=== PATIENT | male | born 1985 | race Two or more races ===

== ENCOUNTER 2020-11-12 01:03 | Emergency (ER) | payer OTHER ==
[~2020-11-12] VITALS: Ht 182.9 cm; Wt 141.5 kg
[2020-11-12 01:09] VITALS: BP 161/102
[2020-11-12] MEDS ORDERED: IBUPROFEN 800 MG TAB PO ONE (02:30)
== END 2020-11-12 03:41 | disposition home or self-care (01) ==
LOC: ER 01:08
DX: H66.91 Otitis media, unspecified, right ear (principal); I10 Essential (primary) hypertension; J45.909 Unspecified asthma, uncomplicated

== ENCOUNTER 2020-12-31 15:09 | Emergency (ER) | payer OTHER ==
[~2020-12-31] VITALS: Ht 182.9 cm; Wt 140.6 kg
[2020-12-31] MEDS ORDERED: SUMAtriptan SUCCINATE 6 MG/0.5 ML VL SC ONE (15:30)
[2020-12-31] MEDS ORDERED: HYDROcodone-ACET 10/325MG TAB PO ONE (15:30)
[2020-12-31 17:00] LABS: Basophils # (auto) 0 10 ^3/uL (0-0.2); Basophils % (auto) 0.5 % (0.0-2.0); Eosinophils # (auto) 0.1 10 ^3/uL (0-0.8); Eosinophils % (auto) 1.7 % (0.0-7.0); Hematocrit 42.1 % (41.0-53.0); Hemoglobin 14.2 g/dL (13.5-17.5); Lymphocytes # (auto) 1.6 10 ^3/uL (0.4-5.4); Mean Corpuscular Hgb Conc. 33.7 g/dL (32.0-36.0); Monocytes # (auto) 0.6 10 ^3/uL (0-1.3); Monocytes % (auto) 8.4 % (0.0-12.0); Neutrophils # (auto) 4.7 10 ^3/uL (1.6-8.6); Neutrophils % (auto) 66.4 % (37.0-80.0); Platelet Count (auto) 248 10^3/uL (140-450); Red Blood Cells 5.26 10^6/uL (4.5-5.90); White Blood Cell 7.1 10^3/uL (4.4-10.8)
[2020-12-31 17:22] LABS: Alanine Aminotransferase 27 U/L (16-61); Albumin 3.8 g/dL (3.4-5.0); Anion Gap 7 (5-15); Aspartate Aminotransferase 16 U/L (15-37); BUN/Creatinine Ratio 6.3; Blood Urea Nitrogen 8 mg/dL (7-18); Calcium 8.8 mg/dL (8.5-10.1); Carbon Dioxide 28 mmol/L (21-32); Chloride 105 mmol/L (98-107); GFR African American 83 mL/min; GFR Non-African American 69 mL/min; Glucose 82 mg/dL (74-106); Potassium 4.2 mmol/L (3.5-5.1); Sodium 140 mmol/L (136-145)
[2020-12-31 17:27] LABS: Alkaline Phosphatase 59 U/L (45-117); Bilirubin, Total 0.4 mg/dL (0.2-1.0); Total Protein 7.7 g/dL (6.4-8.2)
[2020-12-31 20:10] VITALS: BP 156/100
== END 2020-12-31 20:21 | disposition home or self-care (01) ==
LOC: EDBD 15:09 → ER 15:09
DX: I16.0 Hypertensive urgency (principal)
CPT/HCPCS: 36415; 70450; 80053; 84484; 85025; 93005; 96372; 99285; J3030

== ENCOUNTER 2023-03-04 21:02 | Emergency (ER) | payer SELFPAY ==
[~2023-03-04] VITALS: Ht 182.9 cm; Wt 145.5 kg
[2023-03-04 22:10] VITALS: BP 115/82; PULSE 89; RESP 18; TEMP 99.1; O2SAT 99
[2023-03-04] MEDS ORDERED: CEPH500C PO (22:13)
== END 2023-03-04 22:34 | disposition home or self-care (01) ==
LOC: ER 21:02
DX: L03.116 Cellulitis of left lower limb (principal); Z79.899 Other long term (current) drug therapy

== ENCOUNTER 2023-07-03 17:40 | Emergency (ER) | payer OTHER ==
[~2023-07-03] VITALS: Ht 182.9 cm; Wt 146.5 kg
[~2023-07-03 17:40] MED LIST: CEPH500C PO
[2023-07-03 17:45] VITALS: BP 151/93; PULSE 102; RESP 18; TEMP 98.6; O2SAT 96
[2023-07-03] MEDS ORDERED: IBUP1TAB5 PO (20:52)
[2023-07-03] MEDS ORDERED: IBUPROFEN 800 MG TAB PO ONE (21:00)
== END 2023-07-03 21:24 | disposition home or self-care (01) ==
LOC: ER 17:40
DX: S63.697A Other sprain of left little finger, initial encounter (principal); Z79.899 Other long term (current) drug therapy; X50.1XXA Overexertion from prolonged static or awkward postures, initial encounter; Y93.89 Activity, other specified; Y92.89 Other specified places as the place of occurrence of the external cause; Y99.8 Other external cause status
CPT/HCPCS: 29130; 73130

== ENCOUNTER 2024-12-21 22:51 | Emergency (ER) | payer MEDICAID, OTHER ==
[~2024-12-21] VITALS: Ht 182.9 cm; Wt 142.9 kg
[~2024-12-21 22:51] MED LIST changes: +IBUP1TAB5 PO
[2024-12-21 23:24] LABS: Basophils # (auto) 0 10 ^3/uL (0-0.2); Eosinophils # (auto) 0.1 10 ^3/uL (0-0.8); Eosinophils % (auto) 1.2 % (0.0-7.0); Lymphocytes # (auto) 1.9 10 ^3/uL (0.4-5.4); White Blood Cell 7.6 10^3/uL (4.4-10.8)
[2024-12-21 23:26] LABS: Basophils % (auto) 0.5 % (0.0-2.0); Hematocrit 45.5 % (41.0-53.0); Hemoglobin 15.3 g/dL (13.5-17.5); Lymphocytes % (auto) 24.7 % (10.0-50.0); Mean Corpuscular Hemoglobin 26.7 pg (28.0-32.0); Mean Corpuscular Hgb Conc. 33.7 g/dL (32.0-36.0); Mean Corpuscular Volume 79.2 fL (80.0-100.0); Monocytes # (auto) 0.7 10 ^3/uL (0-1.3); Monocytes % (auto) 8.6 % (0.0-12.0); Neutrophils # (auto) 4.9 10 ^3/uL (1.6-8.6); Platelet Count (auto) 274 10^3/uL (140-450); Red Blood Cells 5.74 10^6/uL (4.5-5.90)
[2024-12-21 23:30] LABS: Sodium 143 mmol/L (136-145)
[2024-12-21 23:31] LABS: Anion Gap 8 (5-15); Calcium 9.5 mg/dL (8.7-10.4); Carbon Dioxide 26 mmol/L (20-31)
[2024-12-21 23:33] LABS: Chloride 109 mmol/L (98-107); Potassium 3.5 mmol/L (3.5-5.1)
[2024-12-21 23:36] LABS: BUN/Creatinine Ratio 6.7 (10.0-20.0); Glucose 104 mg/dL (74-106)
--- NOTE | 2024-12-21 23:36 | DVH ---
CHEST RADIOGRAPH Indication: cp Technique: Single frontal view of the chest was obtained COMPARISON: None FINDINGS: Lines and Tubes: None Lungs: Clear Pleura: No effusion. No pneumothorax. Cardiomediastinal contours: Unremarkable Bones: Unremarkable IMPRESSION: 1. No acute disease.
[2024-12-21 23:39] LABS: Blood Urea Nitrogen 9 mg/dL (9-23)
--- NOTE | 2024-12-22 00:44 | ED.PDOC ---
History of Present Illness HPI Comments 39-year-old male who is brought in by ambulance for complaint of nonradiating mid epigastric abdominal pain and left arm tingling. Patient endorses onset of symptoms 20 minutes after eating a pizza, tonight. Only reports history of anxiety. Upon arrival to ED, patient endorses on feeling better and having no symptoms at this time. Per EMS report, no treatments were given and all vitals were stable and within normal limits. Chief Complaint: Chest Pain Time Seen by MD: 22:55 Primary Care Provider: UNKNOWN Reviewed Notes: Nurses Notes, Career Guidance Counselor Notes, Medications, Allergies Allergies: Coded Allergies: NO KNOWN ALLERGIES (Unverified , 11/12/20) Home Meds Active Scripts Ibuprofen Micronized (Ibuprofen) 600 Mg Tab, 1 TAB PO Q6HPRN PRN, #20 TAB As needed for pain Prov:MARYJANE KINNEY FUR STRETCHER 07/03/23 Cephalexin Monohydrate (Cephalexin) 500 Mg Cap, 1 CAP PO QID for 5 Days, #20 CAP 0 Refills Prov:BALTAZAR MARINO 03/04/23 Information Source: Patient, Emergency Med Personnel Mode of Arrival: EMS Severity: Moderate Timing: Minutes Duration: Minutes Prehospital treatment: 12 Lead EKG, Press Feeder [place] Past Medical History PAST MEDICAL HISTORY: Anxiety Surgical History: Denies all surgeries Family History Family History: Reviewed,noncontributory to illness Social History Smoker: Non-Smoker Alcohol: Occasionally Drugs: Denies Drug Use Lives In: Home All Other Systems: Reviewed and Negative (Comprehensive systems review obtained and negative except for what is stated in the HPI.) Physical Exam General Appearance: No Apparent Distress, Obese HEENT: Normal ENT Inspection, Pharynx Normal, TMs Normal Neck: Full Range of Motion, Non-Tender, Normal, Normal Inspection Respiratory: Chest Non-Tender, Lungs Clear, No Accessory Muscle Use, No Res piratory Distress, Normal Breath Sounds Cardiovascular: No Edema, No JVD, No Murmur, No Gallop, Normal Peripheral Pulses, Regular Rate/Rhythm Breast Exam: Deferred Gastrointestinal: No Organomegaly, Non Tender, No Pulsatile Mass, Normal Bowel Sounds, Soft Genitalia: Deferred Pelvic: Deferred Rectal: Deferred Extremities: No calf tenderness, Normal capillary refill, Normal inspection, Normal range of motion, Non-tender, No pedal edema Musculoskeletal : Apperance: Normal Neurologic: Alert, survey party chief II-XII nml as Tested, No Motor Deficits, Normal Affect, Normal Mood, No Sensory Deficits Cerebellar Function: Normal Reflexes: Normal Skin: Dry, Normal Color, Warm Lymphatic: No Adenopathy Was a procedure done? Was a procedure done?: No Differential Dx Considerations may include: Gastritis, gastroenteritis, PUD, GERD, viral syndrome, spoiled food, among others X-Ray, Labs, Meds, VS Vital Signs Date Time Temp Pulse Resp B/P (MAP) Pulse Ox O2 Delivery O2 Flow Rate FiO2 12/21/24 22:56 98.9 102 18 148/68 (94) 99 98.9 Lab Test 12/22/24 00:11 12/21/24 23:07 Range/Units Troponin I High Sensitivity Pending 8 </=54 ng/L White Blood Count 7.6 4.4-10.8 10^3/uL Red Blood Count 5.74 4.5-5.90 10^6/uL Hemoglobin 15.3 13.5-17.5 g/dL Hematocrit 45.5 41.0-53.0 % Mean Corpuscular Volume 79.2 L 80.0-100.0 fL Mean Corpuscular Hemoglobin 26.7 L 28.0-32.0 pg Mean Corpuscular Hemoglobin Concent 33.7 32.0-36.0 g/dL Red Cell Distribution Width 14.0 11.8-14.3 % Platelet Count 274 140-450 10^3/uL Mean Platelet Volume 7.8 6.9-10.8 fL Neutrophils (%) (Auto) 65.0 37.0-80.0 % Lymphocytes (%) (Auto) 24.7 10.0-50.0 % Monocytes (%) (Auto) 8.6 0.0-12.0 % Eosinophils (%) (Auto) 1.2 0.0-7.0 % Basophils (%) (Auto) 0.5 0.0-2.0 % Neutrophils # (Auto) 4.9 1.6-8.6 10 ^3/uL Lymphocytes # (Auto) 1.9 0.4-5.4 10 ^3/uL Monocytes # (Auto) 0.7 0-1.3 10 ^3/uL Eosinophils # (Auto) 0.1 0-0.8 10 ^3/uL Basophils # (Auto) 0 0-0.2 10 ^3/uL Nucleated Red Blood Cells 0.0 % Sodium Level 143 136-145 mmol/L Potassium Level 3.5 3.5-5.1 mmol/L Chloride Level 109 H 98-107 mmol/L Carbon Dioxide Level 26 20-31 mmol/L Anion Gap 8 5-15 Blood Urea Nitrogen 9 9-23 mg/dL Creatinine 1.34 H 0.700-1.30 mg/dL Glomerular Filtration Rate Calc 70 >90 mL/min BUN/Creatinine Ratio 6.7 L 10.0-20.0 Serum Glucose 104 74-106 mg/dL Calcium Level 9.5 8.7-10.4 mg/dL [place] [address] Ph: [phone] DIAGNOSTIC IMAGING Diagnostic Imaging Report : [id number] Signed PATIENT: DARCI BROWN ACCT: [id number] UNIT: [id number] : 1985 LOC: ER ROOM / BED: / AGE / SEX: 39 / M ADM STATUS: REG ER SERVICE 99 ORDERING PHYSICIAN: ORACIO CAGE PROCEDURE(s): CXRP - CHEST PORTABLE REASON: cp ORDER NUMBER(s): [id number], ACCESSION NUMBER(s): [id number] CHEST RADIOGRAPH Indication: cp Technique: Single frontal view of the chest was obtained COMPARISON: None FINDINGS: Lines and Tubes: None Lungs: Clear Pleura: No effusion. No pneumothorax. Cardiomediastinal contours: Unremarkable Bones: Unremarkable IMPRESSION: 1. No acute disease. ATED BY: PRANAV LUNDY MD DICTATED DATE/TIME: 12/21/242333 SIGNED BY: PRANAV LUNDY MD SIGNED DATE/TIME: 12/21/242333 CC: X-Ray, Labs, Meds, VS Comment Imaging: X-rays and CT scans were reviewed and interpreted by this provider, imaging shows no fractures and no pathological disease. Pending radiology review. Laboratory: Labs reviewed and interpreted by this provider. No significant abnormalities noted. Patient has prior medical visits reviewed. Med reconciliation performed Vital signs reviewed Time of 1ST Reevaluation: 23:25 Reevaluation 1ST: Unchanged Patient Education/Counseling: Diagnosis, Treatment, Need For Follow Up (Follow up with PCP in the next 2-4 days. Return to the emergency department if s ymptoms worsen over the next 24 hours.) Family Education/Counseling: No Family Present Additional Information Previous visits reviewed: July 03, 2023 for finger sprain The following tests were ordered, and results were reviewed by me: BMP, CBC, UA, troponin, chest x-ray Additional Information was gathered from interviewing the following independent historians: EMS I reviewed and agreed with the following test results read by other providers: Chest x-ray I discussed treatment and results with medical personnel and: patient Departure 1 Departure Time of Disposition: 01:05 Impression: Primary Impression: GERD (gastroesophageal reflux disease) Qualified Codes: K21.9 - Gastro-esophageal reflux disease without esophagi tis Additional Impression: Anxiety Disposition: 01 HOME / SELF CARE / HOMELESS Condition: Stable Discharged With: Self Critical Care Note Critical Care Time?: No Stability Stability form required: No Heart Score Heart Score: Heart Score Response (Comments) Value History N/A 0 EKG N/A 0 Age N/A 0 Risk Factors N/A 0 Troponin N/A 0 Total 0 I personally scribed for ORACIO CAGEP ([email or web address]) on 12/22/24 at 00:44. Electronically submitted by Ru Clement ([email or web address]). I personally scribed for ORACIO CAGE BUTTERMAKER HELPER ([email or web address]) on 12/22/24 at 00:45. Electronically submitted by Ru Clement ([email or web address]). ORACIO CAGE BUTTERMAKER HELPER Dec 22, 2024 00:44
[2024-12-22 02:40] VITALS: BP 149/101; PULSE 87; RESP 18; TEMP 98.3; O2SAT 94
--- NOTE | 2024-12-22 06:53 | ECG ---
[facility] Test Date: 2024-12-21 Test Time: 23:00:04 Pat Name: DARCI BROWN Department: ED Room: Gender: M Kitchen Designer: KATLYN : 1985 Requested By: ORACIO CAGE Order Number: [id number] Reading MD: Ramy Bland Measurements Intervals [place] Rate: 105 P: 38 [place]: 190 QRS: 30 QRSD: 87 T: 88 QT: 364 QTc: 482 Interpretive Statements Sinus tachycardia Low voltage, precordial leads Borderline T wave abnormalities Borderline prolonged QT interval Electronically Signed On 12-23-2024 9:27:17 PDT by Ramy Bland Please click the below link to view image of tracing.
== END 2024-12-22 02:46 | disposition home or self-care (01) ==
LOC: EDBD 22:51 → ER 22:59
DX: K21.9 Gastro-esophageal reflux disease without esophagitis (principal); F41.9 Anxiety disorder, unspecified; F10.90 Alcohol use, unspecified, uncomplicated; Z79.899 Other long term (current) drug therapy; Y90.9 Presence of alcohol in blood, level not specified
CPT/HCPCS: 36415; 71045; 80048; 84484; 85025; 93005

== ENCOUNTER 2025-01-15 18:19 | Inpatient (IN) | payer MEDICAID ==
[~2025-01-15] VITALS: Ht 182.9 cm; Wt 132.0 kg
--- NOTE | 2025-01-15 18:41 | ED.PDOC ---
History of Present Illness HPI Comments 40-year-old male is brought in by ambulance for chief complaint of left upper chest wall pain, palpitations, and bilateral and clamminess and cold sensation. This is on having symptoms, with no prior history of, intermittently, for the past 2 weeks. Recent episode is endorsed to have begun 20 minutes prior to arrival, unprovoked. Pain is nonradiating and 3/10 in severity. Only significant history of hypertension. Patient denies having any personal or family history of cardiac disease or tobacco use. Patient denies having any shortness of breath, nausea, vomiting, fever, or further associated symptoms. Chief Complaint: Chest Pain Time Seen by MD: 18:20 Primary Care Provider: UNKNOWN Reviewed Notes: Nurses Notes, Family Day Carer Notes, Medications, Allergies Allergies: Coded Allergies: NO KNOWN ALLERGIES (Unverified , 11/12/20) Home Meds Active Scripts Ibuprofen Micronized (Ibuprofen) 600 Mg Tab, 1 TAB PO Q6HPRN PRN, #20 TAB As needed for pain Prov:MARYJANE KINNEY PAINTER MAINTENANCE 07/03/23 Cephalexin Monohydrate (Cephalexin) 500 Mg Cap, 1 CAP PO QID for 5 Days, #20 CAP 0 Refills Prov:BALTAZAR MARINO 03/04/23 Information Source: Emergency Med Personnel Mode of Arrival: EMS Severity: Moderate Timing: Hours Duration: Since onset Prehospital treatment: 12 Lead EKG, Automatic Outsole Cutter Review of Systems: REVIEW OF SYSTEMS: No fever, no chills, HEENT: No neck pain, no blurred vision Cardiac: No chest pain. No palpitations. Lungs: No shortness of breath, GI: No abdominal pain, no vomiting Musculoskeletal: No joint pain , no back pain Skin: No rash, no wound Neuro: No headache, no dizziness, no syncope Vital Signs Vital Signs Date Time Temp Pulse Resp B/P (MAP) Pulse Ox O2 Delivery O2 Flow Rate FiO2 01/15/25 22:17 98.6 80 18 141/84 (103) 97 98.6 01/15/25 19:37 Room Air* 0 21 Physical Exam General: Awake, alert and oriented. No acute distress. Skin: Skin in warm, dry and intact without rashes or lesions. HEENT: The head is normocephalic and atraumatic. Conjunctivae are clear without exudates or hemorrhage. Sclera is non-icteric. Neck: Normal range of motion. No JVD. Cardiac: Regular rate Respiratory: No signs of respiratory distress. No Stridor. Extremities: Upper and lower extremities are atraumatic in appearance without deformity. Neurological: The patient is awake, alert and oriented to person, place, and time with normal speech. Speech is clear. There is no facial asymmetry. Psychiatric: Appropriate mood and affect. Good judgement and insight. Past Medical History PAST MEDICAL HISTORY: Anxiety, HTN Surgical History: Denies all surgeries Family History Family History: Reviewed,noncontributory to illness Social History Smoker: Non-Smoker Alcohol: Occasionally Drugs: Denies Drug Use Lives In: Home Was a procedure done? Was a procedure done?: No EKG EKG : Pulse Rate (adult): 96 [place]: Normal Cardiac Rhythm: NSR Block: None Hypertrophy: None ST: Normal Differential Dx Considerations may include: Differential diagnoses considered include acute ischemic coronary syndrome, aortic dissection, cardiac tamponade, mediastinitis, pulmonary embolus, pneumothorax, tension pneumothorax, esophageal rupture, coronary artery vasospasm, myocarditis, pericarditis, pneumonia, pulmonary edema, esophageal tear, pancreatitis, aortic stenosis, dilated cardiomyopathy, hypertrophic cardio myopathy, mitral valve prolapse, malignancy, pleuritis, pneumomediastinum, primary pulmonary hypertension, cholecystitis, esophageal spasm, esophagus, gastritis, GERD, peptic ulcer disease, costochondritis, fibromyalgia, rib fracture, herpes zoster, radicular syndromes, thoracic outlet syndrome, somatization. X-Ray, Labs, Meds, VS Vital Signs Date Time Temp Pulse Resp B/P (MAP) Pulse Ox O2 Delivery O2 Flow Rate FiO2 01/15/25 22:17 98.6 80 18 141/84 (103) 97 98.6 01/15/25 21:20 88 01/15/25 19:37 Room Air* 0 21 01/15/25 19:12 104 01/15/25 18:54 98.7 101 18 145/79 (101) 96 98.7 01/15/25 18:54 101 01/15/25 18:41 96 01/15/25 18:26 98.4 111 16 127/84 (98) 100 98.4 01/15/25 18:21 96 Lab Test 01/15/25 22:09 01/15/25 19:53 7/6/25 19:01 Range/Units Troponin I High Sensitivity 3 L 4 4 </=54 ng/L White Blood Count 7.1 4.4-10.8 10^3/uL Red Blood Count 5.80 4.5-5.90 10^6/uL Hemoglobin 15.6 13.5-17.5 g/dL Hematocrit 46.5 41.0-53.0 % Mean Corpuscular Volume 80.3 80.0-100.0 fL Mean Corpuscular Hemoglobin 26.9 L 28.0-32.0 pg Mean Corpuscular Hemoglobin Concent 33.5 32.0-36.0 g/dL Red Cell Distribution Width 14.3 11.8-14.3 % Platelet Count 268 140-450 10^3/uL Mean Platelet Volume 7.8 6.9-10.8 fL Neutrophils (%) (Auto) 64.9 37.0-80.0 % Lymphocytes (%) (Auto) 24.4 10.0-50.0 % Monocytes (%) (Auto) 8.1 0.0-12.0 % Eosinophils (%) (Auto) 2.1 0.0-7.0 % Basophils (%) (Auto) 0.5 0.0-2.0 % Neutrophils # (Auto) 4.6 1.6-8.6 10 ^3/uL Lymphocytes # (Auto) 1.7 0.4-5.4 10 ^3/uL Monocytes # (Auto) 0.6 0-1.3 10 ^3/uL Eosinophils # (Auto) 0.1 0-0.8 10 ^3/uL Basophils # (Auto) 0 0-0.2 10 ^3/uL Nucleated Red Blood Cells 0.1 % Sodium Level 145 136-145 mmol/L Potassium Level 3.9 3.5-5.1 mmol/L Chloride Level 109 H 98-107 mmol/L Carbon Dioxide Level 28 20-31 mmol/L Anion Gap 8 5-15 Blood Urea Nitrogen 9 9-23 mg/dL Creatinine 1.73 H 0.700-1.30 mg/dL Glomerular Filtration Rate Calc 51 >90 mL/min BUN/Creatinine Ratio 5.2 L 10.0-20.0 Serum Glucose 86 74-106 mg/dL Calcium Level 9.9 8.7-10.4 mg/dL Total Bilirubin 0.3 0.2-1.0 mg/dL Aspartate Amino Transferase (AST) 23 13-40 U/L Alanine Aminotransferase (ALT) 20 7-40 U/L Alkaline Phosphatase 65 46-116 U/L B-Type Natriuretic Peptide 8.28 0-100 pg/mL Total Protein 6.5 5.7-8.2 g/dL Albumin 4.4 3.2-4.8 g/dL Current Medications Medications (Trade) Dose Ordered Sig/Tigre Route Start Time Stop Time Status Last Admin Aspirin 324 mg ONCE ONCE PO 01/15/25 19:00 01/15/25 19:01 DC 01/15/25 19:37 Time of 1ST Reevaluation: 18:50 Reevaluation 1ST: Unchanged Patient Education/Counseling: Diagnosis, Treatment Family Education/Counseling: No Family Present SEPSIS Sepsis Screen Physician Orders Vital Signs Q1HR (01/15/25 18:50) Chest Xray 1 View (01/15/25 18:50) Vital Signs Date Time Temp Pulse Resp B/P (MAP) Pulse Ox O2 Delivery O2 Flow Rate FiO2 01/15/25 22:17 98.6 80 18 141/84 (103) 97 98.6 01/15/25 21:20 88 01/15/25 19:37 Room Air* 0 21 01/15/25 19:12 104 01/15/25 18:54 98.7 101 18 145/79 (101) 96 98.7 01/15/25 18:54 101 01/15/25 18:41 96 01/15/25 18:26 98.4 111 16 127/84 (98) 100 98.4 01/15/25 18:21 96 Laboratory Tests Test 01/15/25 19:01 White Blood Count 7.1 10^3/uL (4.4-10.8) Medications Medications Dose Ordered Sig/Tigre Route Start Time Stop Time Status Last Admin Dose Admin Aspirin 324 mg ONCE ONCE PO 01/15/25 19:00 01/15/25 19:01 DC 01/15/25 19:37 Departure 1 Departure Time of Disposition: 22:31 Impression: Primary Impression: Chest pain Additional Impression: FRANCES (acute kidney injury) Disposition: ADMITTED INPATIENT Condition: Stable Comments Patient admitted to hospitalist service for further treatment, evaluation and monitoring. Extensive evaluation was performed in attempt to identify or rule out: (See differential diagnosis section) The following tests were ordered, and results were reviewed by me and discussed with patient: (See diagnostic results section) The following test were independently interpreted by me: EKG I reviewed and agreed with the following test results read by other providers: Chest x-ray I reviewed the following notes from the pt's past medical encounters: December 21, 2024 encounter for GERD Additional information was gathered from interviewing the following independent historians: EMS personnel Discussion of management or test interpretation with external physician/other qualified health personal care assistant: N/A Addressed an acute or chronic illness that poses a threat to life or bodily function: Unstable angina, FRANCES Decision regarding hospitalization or escalation of hospital level of care: Risk and benefits of admission for further treatment of patient's condition was considered. Due to patient's current clinical condition, high risk of decline and poor outcome if discharged and need for further inpatient management and monitoring, patient will be admitted to the hospital. Drug therapy requiring intensive monitoring for toxicity: N/A Parenteral controlled substances: N/A Decision regarding elective major surgery with identified patient or procedure risk factors: N/A Decision regarding emergency major surgery: N/A Decision not to resuscitate or to de-escalate care because of poor prognosis: N/A Diagnosis or treatment significantly limited by social determinants of health: N/A Critical Care Note Critical Care Time?: No Stability Stability form required: No Heart Score Heart Score: Heart Score Response (Comments) Value History Slightly Suspicious 0 EKG Normal 0 Age <45 0 Risk Factors 1 or 2 risk factors 1 Troponin Normal limit 0 Total 1 I personally scribed for STACY GAMEZ MD ([email or web address]) on 01/15/25 at 18:41. Electronically submitted by Ru Clement [email or web address]). STACY GAMEZ MD Jan 15, 2025 18:41
--- NOTE | 2025-01-15 19:13 | ECG ---
[facility] Test Date: 2025-01-15 Test Time: 19:12:51 Pat Name: DARCI BROWN Department: ER Room: Gender: M Pipe Organ Installer: SEVERINO : 1985 Requested By: EMERGENCY EMERGENCY Order Number: [id number] Reading MD: Measurements Intervals [place] Rate: 104 P: 50 ID: [id number] QRS: 39 QRSD: 78 T: 66 QT: 324 QTc: 427 Interpretive Statements Sinus tachycardia Anteroseptal infarct, old Please click the below link to view image of tracing.
[2025-01-15 19:15] LABS: Hemoglobin 15.6 g/dL (13.5-17.5); Nucleated Red Blood Cells % 0.1 %
[2025-01-15 19:17] LABS: Hematocrit 46.5 % (41.0-53.0); Mean Corpuscular Hemoglobin 26.9 pg (28.0-32.0); Mean Corpuscular Volume 80.3 fL (80.0-100.0)
[2025-01-15 19:31] LABS: Alanine Aminotransferase 20 U/L (7-40); Albumin 4.4 g/dL (3.2-4.8); Alkaline Phosphatase 65 U/L (46-116); Anion Gap 8 (5-15); BUN/Creatinine Ratio 5.2 (10.0-20.0); Calcium 9.9 mg/dL (8.7-10.4); Carbon Dioxide 28 mmol/L (20-31); Glucose 86 mg/dL (74-106); Potassium 3.9 mmol/L (3.5-5.1); Sodium 145 mmol/L (136-145); Total Protein 6.5 g/dL (5.7-8.2)
[2025-01-15 19:36] LABS: Bilirubin, Total 0.3 mg/dL (0.2-1.0); Blood Urea Nitrogen 9 mg/dL (9-23); Chloride 109 mmol/L (98-107)
--- NOTE | 2025-01-15 19:47 | DVH ---
CHEST RADIOGRAPH Indication: cp Technique: Single frontal view of the chest was obtained Comparison: XY CHEST PORTABLE on DOS: 12/21/24 FINDINGS: Lines and Tubes: None Lungs: No focal consolidation. Pleura: No effusion. No pneumothorax. Cardiomediastinal contours: Unremarkable Bones: No acute osseous abnormality. IMPRESSION: 1. No acute cardiopulmonary disease.
[2025-01-15] MEDS: SODIUM CHLORIDE 0.9% 1,000 ML IV ONE (22:38)
[2025-01-15] MEDS ORDERED: ACETAMINOPHEN 325 MG TAB PO PRN (23:45)
[2025-01-15] MEDS: PANTOPRAZOLE 40 MG TAB PO ONE (23:45)
[2025-01-15] MEDS ORDERED: MORPHINE SULFATE INJ 2 MG/ml SYRG IV PRN (23:45)
[2025-01-15] MEDS ORDERED: NITROGLYCERIN 0.4 MG SL TAB SL PRN (23:45)
[2025-01-15] MEDS: ATORVASTATIN 20 MG TAB PO ONE (23:45)
--- NOTE | 2025-01-16 00:08 | DVHHP2 ---
History of Present Illness History of Present Illness Patient is 40 years old male with past medical history of hypertension on any medication came with a complaint of chest pain. As per patient he has been having intermittent chest pain that is going on for last 1 month. Patient reported chest pain started again today, gradual, 4/10, sharp, intermittent, aggravated with the anxiety, no relieving factor. Patient also endorsed some palpitation and shortness of breaths along with the chest pain. On further discussion patient reported during chest pain he was sweaty and his hands feel calm and sweaty. Patient denied any fever, cough, diarrhea, acute joint pain or redness or swelling, dysarthria change in vision. Initial lab workup revealed troponin I within normal limit, BNP within normal limit, serum creatinine 1.73, GFR 51. LDL-132, EKG revealed Q-wave on 1 aVL, V1,V2. CXR no acute cardiopulmonary disease. Past Medical History Hypertension-not taking any medication Past Surgical History None Family History None Past Social History Occasional alcoholic, denies smoking or drug abuse, lives with Review of Systems Review of Systems Allergy- NKDA Cardiovascular- deny acute cough or palpitation Respiratory denies cough or or wheezing Gastrointestinal- denies any rectal bleeding, nausea or vomiting Musculoskeletal-denies acute joint swelling or tenderness or redness Neurological- denies acute dysarthria, dysphagia, change in vision Psychiatry- denies depression or SI or HI Skin- denies acute rash or purpura Allergies: Coded Allergies: NO KNOWN ALLERGIES (Unverified , 11/12/20) Medications Current Medications Medications Dose Ordered Sig/Tigre Route Start Time Stop Time Status Last Admin Dose Admin Acetaminophen 650 mg Q6HP PRN PO 01/15/25 23:45 Nitroglycerin 0.4 mg Q5MINP PRN SL 01/15/25 23:45 Morphine Sulfate 2 mg Q30M PRN IV 01/15/25 23:45 Aspirin 81 mg DAILY PO 01/16/25 10:00 Atorvastatin Calcium 40 mg HS PO 01/16/25 22:00 Pantoprazole Sodium 40 mg DAILY@0600 PO 01/16/25 06:00 Exam Vital Signs Vital Signs Date Time Temp Pulse Resp B/P (MAP) Pulse Ox O2 Delivery O2 Flow Rate FiO2 01/15/25 22:17 98.6 80 18 141/84 (103) 97 98.6 7/6/25 19:37 Room Air* 0 21 Exam General examination- awake, alert, oriented HEENT- PEERLA, no acute nasal discharge Cardiovascular- S1-S2 audible, rate and rhythm regular, no murmur Respiratory- CTAB, no wheeze or rhonchi Gastrointestinal-nontender, bowel sound+. Nondistended Musculoskeletal-no acute joint swelling or tenderness or redness Lower extremity- no leg edema Neurological- cranial nerves intact, no acute dysarthria or dysphagia Psychiatry- denies depression or SI or HI Skin- no acute rash or purpura Labs/Xrays Labs Test 01/15/25 22:09 01/15/25 19:01 Range/Units Troponin I High Sensitivity 3 L </=54 ng/L White Blood Count 7.1 4.4-10.8 10^3/uL Red Blood Count 5.80 4.5-5.90 10^6/uL Hemoglobin 15.6 13.5-17.5 g/dL Hematocrit 46.5 41.0-53.0 % Mean Corpuscular Volume 80.3 80.0-100.0 fL Mean Corpuscular Hemoglobin 26.9 L 28.0-32.0 pg Mean Corpuscular Hemoglobin Concent 33.5 32.0-36.0 g/dL Red Cell Distribution Width 14.3 11.8-14.3 % Platelet Count 268 140-450 10^3/uL Mean Platelet Volume 7.8 6.9-10.8 fL Neutrophils (%) (Auto) 64.9 37.0-80.0 % Lymphocytes (%) (Auto) 24.4 10.0-50.0 % Monocytes (%) (Auto) 8.1 0.0-12.0 % Eosinophils (%) (Auto) 2.1 0.0-7.0 % Basophils (%) (Auto) 0.5 0.0-2.0 % Neutrophils # (Auto) 4.6 1.6-8.6 10 ^3/uL Lymphocytes # (Auto) 1.7 0.4-5.4 10 ^3/uL Monocytes # (Auto) 0.6 0-1.3 10 ^3/uL Eosinophils # (Auto) 0.1 0-0.8 10 ^3/uL Basophils # (Auto) 0 0-0.2 10 ^3/uL Nucleated Red Blood Cells 0.1 % Sodium Level 145 136-145 mmol/L Potassium Level 3.9 3.5-5.1 mmol/L Chloride Level 109 H 98-107 mmol/L Carbon Dioxide Level 28 20-31 mmol/L Anion Gap 8 5-15 Blood Urea Nitrogen 9 9-23 mg/dL Creatinine 1.73 H 0.700-1.30 mg/dL Glomerular Filtration Rate Calc 51 >90 mL/min BUN/Creatinine Ratio 5.2 L 10.0-20.0 Serum Glucose 86 74-106 mg/dL Calcium Level 9.9 8.7-10.4 mg/dL Total Bilirubin 0.3 0.2-1.0 mg/dL Aspartate Amino Transferase (AST) 23 13-40 U/L Alanine Aminotransferase (ALT) 20 7-40 U/L Alkaline Phosphatase 65 46-116 U/L B-Type Natriuretic Peptide 8.28 0-100 pg/mL Total Protein 6.5 5.7-8.2 g/dL Albumin 4.4 3.2-4.8 g/dL Assessment/Plan Assessment/Plan Assessment and plan -Acute chest pain, rule out acute coronary syndrome/ruled out acute pericarditis -EKG revealed Q-waves in 1 aVL, V1 V2, -troponin I within normal limit -continue aspirin 81 mg p.o. daily -continue atorvastatin 40 mg p.o. q.h.s. -ordered cardiology consult for further evaluation and care -ordered echo 2D for further evaluation and care # FRANCES likely due to VMN -serum creatinine 1.73 -continue IV normal saline as prescribed -monitor BMP # hypertension -monitor blood pressure #HLD -LDL- 132 -c/w Atorvastatin 40 mg qhs # obesity -patient was counseled about the effect of obesity on health, physical activity, weight reduction, healthy diet Goals of care, Code status full code ; discussed with >15 minutes PUD prophylaxis: Pantoprazole DVT prophylaxis: Patient ambulating Plan discussed with Dr. Contreras , nursing staff, Total time spent on patient evaluation, chart review, assessment and plan, discussion discussion >35 minutes Plan discussed with: Patient, Other (RN) My Orders Orders - MALOU GARCIA RESIDENT Procedure Category Date Status Time Admit ADMIT 01/15/25 Transmitted 23:40 Code Status CODE 01/15/25 Transmitted 23:40 Complete Blood Count LAB 01/16/25 Logged 04:00 Comprehensive LAB 01/16/25 Logged Metabolic Panel 04:00 Cardiac DIET 01/16/25 Transmitted Diet-2gna,Lofat,Lochol Breakfast Echo 2d Mode Cardiac US 01/15/25 Logged DOP 23:40 Acetaminophen Tablet PHA 01/15/25 In Process (Tylenol Tablet) 23:45 Nitroglycerin PHA 01/15/25 In Process Sublingual (Ntrostat 23:45 Morphine Sulfate PHA 01/15/25 In Process Injection 23:45 Notify Of Changes KENNETH 01/15/25 In Process From Base 23:40 [facility] 01/15/25 In Process 24 Hours 23:40 Aspirin Tablet PHA 01/16/25 In Process 10:00 Atorvastatin (Lipitor) PHA 01/16/25 In Process 22:00 Pantoprazole Tablet PHA 01/16/25 In Process (Protonix Tablet) 06:00 Date of Service: Jan 15, 2025 Billing Provider: YIFAN CONTRERAS MD Common Visit Codes: 49645-JARKAAT INP/OBS CARE (HIGH) Secondary Visit Codes: 10093-[id number] CARE PLAN 30 MINUTES MALOU GARCIA RESIDENT Jan 16, 2025 00:08
[2025-01-16] MEDS: SODIUM CHLORIDE 0.9% 1,000 ML IV ONE (02:17)
[2025-01-16] MEDS: SODIUM CHLORIDE 0.9% 1,000 ML IV SCH (03:46)
[2025-01-16 04:22] LABS: Hemoglobin 14.4 g/dL (13.5-17.5)
[2025-01-16 04:26] LABS: Hematocrit 42.5 % (41.0-53.0); Mean Corpuscular Hemoglobin 27.0 pg (28.0-32.0); Mean Corpuscular Volume 79.5 fL (80.0-100.0); Nucleated Red Blood Cells % 0.2 %
[2025-01-16 05:07] LABS: Alanine Aminotransferase 19 U/L (7-40); Alkaline Phosphatase 53 U/L (46-116); Anion Gap 8 (5-15); BUN/Creatinine Ratio 6.9 (10.0-20.0); Blood Urea Nitrogen 9 mg/dL (9-23); Calcium 9.1 mg/dL (8.7-10.4); Carbon Dioxide 24 mmol/L (20-31); Glucose 84 mg/dL (74-106); Potassium 3.9 mmol/L (3.5-5.1); Sodium 144 mmol/L (136-145); Total Protein 5.8 g/dL (5.7-8.2)
[2025-01-16 05:08] LABS: Albumin 3.9 g/dL (3.2-4.8); Bilirubin, Total 0.3 mg/dL (0.2-1.0)
[2025-01-16 05:17] LABS: Chloride 112 mmol/L (98-107)
[2025-01-16] MEDS: PANTOPRAZOLE 40 MG TAB PO SCH (05:49)
[2025-01-16 05:55] LABS: Triglycerides 82 mg/dL (< 150)
[2025-01-16 05:57] LABS: Cholesterol 172 mg/dL (< 200)
[2025-01-16 06:00] LABS: HDL Cholesterol 36 mg/dL (40-59)
[2025-01-16 08:00] VITALS: BP 150/97; PULSE 68; RESP 13; TEMP 98.1; O2SAT 96
[2025-01-16 08:47] VITALS: BP 150/97; PULSE 68; RESP 13; TEMP 98.1; O2SAT 96
[2025-01-16 11:01] LABS: Urine Protein, UAD Negative (Negative)
[2025-01-16 11:06] LABS: Amphetamine Screen, Urine Neg (NEGATIVE); Barbiturate Scree,Urine Neg (NEGATIVE); Benzodiazephine Screen, Urine Neg (NEGATIVE); Cannabinoid Screen, Urine Neg (NEGATIVE); Cocaine Screen, Urine Neg (NEGATIVE); Opiate Scree,Urine Neg (NEGATIVE); Phencyclidine Screen, Urine Neg (NEGATIVE)
--- NOTE | 2025-01-16 12:00 | ECG ---
[facility] Test Date: 2025-01-15 Test Time: 18:21:38 Pat Name: DARCI BROWN Department: ED Room: [address] [place] [address] Gender: M Milk Treater: [email or web address] : 1985 Requested By: ELDON FLANAGAN Order Number: [id number] Reading MD: Measurements Intervals [place] Rate: 96 P: 43 WI: 178 QRS: 28 QRSD: 91 T: 70 QT: 331 QTc: 419 Interpretive Statements Sinus rhythm Low voltage, precordial leads Anteroseptal infarct, old Please click the below link to view image of tracing.
[2025-01-16 13:30] VITALS: BP 138/88; PULSE 75; RESP 16; TEMP 98.4; O2SAT 97
--- NOTE | 2025-01-16 13:32 | DVHCONRES ---
Date Seen: Jan 16, 2025 Resident Creating Document: ELI CAMPA RESDIENT History of Present Illness This is a 40-year-old male with past medical history of hypertension and anxiety disorder came to the hospital because of chest pain. Per patient, yesterday patient was feeling anxious and suddenly developed chest pain, shortness of breath, palpitation, sweating, and body shaking. Per patient he had same symptoms in the past which was due to anxiety/panic attack. He denies fever, cough, or any recent sick contacts/chest trauma. Patient was prescribed lisinopril for blood pressure but the not taking. PMHx: Hypertension and anxiety disorder Home medication: Patient was prescribed lisinopril for blood pressure, but the patient does not take. Xanax for anxiety Allergic history: No known allergy Patient seen and examined at bedside. Patient is currently has no active symptoms including chest pain with shortness of breaths. Family History: Patient reports no known family medical history. Allergies: Coded Allergies: NO KNOWN ALLERGIES (Unverified , 11/12/20) Home Meds Active Scripts Ibuprofen Micronized (Ibuprofen) 600 Mg Tab, 1 TAB PO Q6HPRN PRN, #20 TAB As needed for pain Prov:MARYJANE KINNEY FREIGHT HANDLER 07/03/23 Cephalexin Monohydrate (Cephalexin) 500 Mg Cap, 1 CAP PO QID for 5 Days, #20 CAP 0 Refills Prov:BALTAZAR MARINO 03/04/23 Current Medications Current Medications Medications (Trade) Dose Ordered Sig/Tigre Route PRN Reason Start Time Stop Time Status Last Admin Acetaminophen (Tylenol Tablet) 650 mg Q6HP PRN PO PAIN SCALE 1-3 OR TEMP>100.4 01/15/25 23:45 Nitroglycerin (Ntrostat Sublingual) 0.4 mg Q5MINP PRN SL FOR CHEST PAIN 01/15/25 23:45 Morphine Sulfate 2 mg Q30M PRN IV FOR CHEST PAIN 01/15/25 23:45 Aspirin 81 mg DAILY PO 01/16/25 10:00 01/16/25 09:51 Atorvastatin Calcium (Lipitor) 40 mg HS PO 01/16/25 22:00 Pantoprazole Sodium (Protonix Tablet) 40 mg DAILY@0600 PO 01/16/25 06:00 Sodium Chloride 1,000 ml @ 125 mls/hr Q8H IV 01/16/25 00:45 01/16/25 08:45 Vital Signs Vital Signs Date Time Temp Pulse Resp B/P (MAP) Pulse Ox O2 Delivery O2 Flow Rate FiO2 01/16/25 08:47 68 13 96 Room Air* 0 21 01/16/25 08:47 98.1 150/97 (114) 98.1 Physical Exam General Appearance: Alert, Oriented X3, Cooperative, No acute distress HEENT: Atraumatic, PERRLA, EOMI, Mucous membrane moist/pink Respiratory: Clear to auscultation, Normal air movement Cardiovascular: Regular rate, Normal S1, Normal S2, No murmurs, no chest wall tenderness Abdominal: Normal bowel sounds, Soft, No tenderness, No hepatospenomegaly, No masses Extremities: No clubbing, No cyanosis, No edema, Normal pulses, No tenderness/swelling Skin: No rashes, No breakdown, No significant lesion Neuro: Normal gait, Normal speech, Strength at 5/5 X4 ext, Normal tone, Sensation intact, Cranial nerves 3-12 NL, Reflexes 2+ Psych/Mental Status: Mental status NL, Mood NL Labs/Diagnostic Data Labs Test 01/16/25 09:22 01/16/25 05:30 01/16/25 03:50 01/15/25 22:09 Range/Units Urine Color Light-yellow Yellow Urine Clarity Clear Clear Urine pH 7.5 5.0-9.0 Urine Specific [place] 1.014 1.001-1.035 Urine Protein Negative Negative Urine Ketones Negative Negative Urine Blood Negative Negative /uL Urine Nitrite Negative Negative Urine Bilirubin Negative Negative Urine Urobilinogen Normal Negative mg/dL Urine Leukocyte Esterase Negative Negative /uL Urine RBC <1 0 - 3 /hpf Urine Microscopic WBC 1 0-3 /HPF Urine Squamous Epithelial Cells Few <5 /hpf Urine Bacteria None seen None Seen /hpf Urine Glucose Normal Normal mg/dL Urine Opiates Screen Neg NEGATIVE Urine Fentanyl Screen Neg NEGATIVE Urine Barbiturates Screen Neg NEGATIVE Urine Phencyclidine Screen Neg NEGATIVE Urine Amphetamines Screen Neg NEGATIVE Urine Benzodiazepines Screen Neg NEGATIVE Urine Cocaine Screen Neg NEGATIVE Urine Cannabinoids Screen Neg NEGATIVE Triglycerides Level 82 < 150 mg/dL Cholesterol Level 172 < 200 mg/dL LDL Cholesterol 132 H < 100 mg/dL HDL Cholesterol 36 L 40-59 mg/dL White Blood Count 7.8 4.4-10.8 10^3/uL Red Blood Count 5.34 4.5-5.90 10^6/uL Hemoglobin 14.4 13.5-17.5 g/dL Hematocrit 42.5 41.0-53.0 % Mean Corpuscular Volume 79.5 L 80.0-100.0 fL Mean Corpuscular Hemoglobin 27.0 L 28.0-32.0 pg Mean Corpuscular Hemoglobin Concent 34.0 32.0-36.0 g/dL Red Cell Distribution Width 14.6 H 11.8-14.3 % Platelet Count 246 140-450 10^3/uL Mean Platelet Volume 8.0 6.9-10.8 fL Neutrophils (%) (Auto) 60.5 37.0-80.0 % Lymphocytes (%) (Auto) 30.7 10.0-50.0 % Monocytes (%) (Auto) 6.3 0.0-12.0 % Eosinophils (%) (Auto) 2.1 0.0-7.0 % Basophils (%) (Auto) 0.4 0.0-2.0 % Neutrophils # (Auto) 4.7 1.6-8.6 10 ^3/uL Lymphocytes # (Auto) 2.4 0.4-5.4 10 ^3/uL Monocytes # (Auto) 0.5 0-1.3 10 ^3/uL Eosinophils # (Auto) 0.2 0-0.8 10 ^3/uL Basophils # (Auto) 0 0-0.2 10 ^3/uL Nucleated Red Blood Cells 0.2 % Sodium Level 144 136-145 mmol/L Potassium Level 3.9 3.5-5.1 mmol/L Chloride Level 112 H 98-107 mmol/L Carbon Dioxide Level 24 20-31 mmol/L Anion Gap 8 5-15 Blood Urea Nitrogen 9 9-23 mg/dL Creatinine 1.30 0.700-1.30 mg/dL Glomerular Filtration Rate Calc 72 >90 mL/min BUN/Creatinine Ratio 6.9 L 10.0-20.0 Serum Glucose 84 74-106 mg/dL Hemoglobin A1c 5.2 <5.7 % A1C Calcium Level 9.1 8.7-10.4 mg/dL Total Bilirubin 0.3 0.2-1.0 mg/dL Aspartate Amino Transferase (AST) 25 13-40 U/L Alanine Aminotransferase (ALT) 19 7-40 U/L Alkaline Phosphatase 53 46-116 U/L Total Protein 5.8 5.7-8.2 g/dL Albumin 3.9 3.2-4.8 g/dL Vitamin B12 Level 455 211-911 pg/mL Vitamin D 25-Hydroxy 25.4 L 30.0-100 ng/mL Folic Acid 8.52 >5.38 ng/mL Thyroid Stimulating Hormone (TSH) 1.44 0.55-4.78 uIU/mL Plasma/Serum Blood Alcohol < 3.0 <10 mg/dL Troponin I High Sensitivity 3 L </=54 ng/L Test 01/15/25 19:01 Range/Units B-Type Natriuretic Peptide 8.28 0-100 pg/mL Assessment Chest pain, likely due to anxiety/panic attack History of hypertension Morbid obesity FRANCES, likely VMN * EKGs shows normal sinus rhythm with no significant ST or T-wave changes * Serial trop I and BNP is within normal limits * Chest x-ray shows no intrathoracic abnormalities Plan/recommendation * Continue lisinopril 20 mg daily * Check echocardiogram * In context of normal echocardiogram no further cardiology workup is required at the moment * We sign of the patient * History of plan per primary team Thank you for giving us the opportunity to take care of your patient. Please call back if you have any questions/concern. Plan/Recommendation pt seen with cv team morbidly obese, with panic attack negative cv workup cv cleared for dc home will sign off Plan discussed with: Patient, Other (RN) ELI CAMPA Jan 16, 2025 13:32 MIRA IRVING MD Jan 16, 2025 13:50
[2025-01-16] MEDS ORDERED: LISINOPRIL 20 MG TAB PO ONE (13:45)
--- NOTE | 2025-01-16 17:26 | DVHPNRES ---
Progress Note Objective vital signs Vital Sign Date Time Temp Pulse Resp B/P (MAP) Pulse Ox O2 Delivery O2 Flow Rate FiO2 01/16/25 13:30 98.4 75 16 138/88 (105) 97 98.4 01/16/25 08:47 Room Air* 0 21 medications Current Medications Medications Dose Ordered Sig/Tigre Route Start Time Stop Time Status Last Admin Dose Admin Acetaminophen 650 mg Q6HP PRN PO 01/15/25 23:45 Nitroglycerin 0.4 mg Q5MINP PRN SL 01/15/25 23:45 Morphine Sulfate 2 mg Q30M PRN IV 01/15/25 23:45 Aspirin 81 mg DAILY PO 01/16/25 10:00 01/16/25 09:51 81 MG Atorvastatin Calcium 40 mg HS PO 01/16/25 22:00 Pantoprazole Sodium 40 mg DAILY@0600 PO 01/16/25 06:00 Sodium Chloride 1,000 ml @ 125 mls/hr Q8H IV 01/16/25 00:45 01/16/25 08:45 125 MLS/HR Lisinopril 20 mg DAILY PO 01/17/25 10:00 laboratory and microbiology Laboratory Tests 01/16/25 03:50 Test 01/16/25 03:50 Range/Units Serum Glucose 84 74-106 mg/dL My Orders My Orders Orders - ELDON FLANAGAN RESIDENT Procedure Category Date Status Time Complete Blood Count LAB 01/17/25 Verified 04:00 Comprehensive LAB 01/17/25 Verified Metabolic Panel 04:00 Strict I & O KENNETH 01/16/25 Verified 17:24 ELDON FLANAGAN RESIDENT Jan 16, 2025 17:26
[2025-01-16] MEDS ORDERED: ATORVASTATIN 20 MG TAB PO SCH (22:00)
--- NOTE | 2025-01-16 22:33 | DVHDSRES ---
Discharge Summary Date of Admission Resident Creating Document: SHERELDON CHAPPELL MILAD RESIDENT Jan 15, 2025 at 23:40 Date of Discharge: Jan 16, 2025 Admitting Diagnosis Primary: 1. Chest pain, non-cardiac, likely anxiety-related 2. Hypertension, not on medication 3. 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) Mild FRANCES, likely volume-related Hyperlipidemia (LDL 132) Intravasular Volume depletion, mild Macrocytic indices without anemia Occasional alcohol use Normal troponin and BNP levels (screened for ACS) Labs/Diagnostic Data: Laboratory Results Test 01/16/25 09:22 01/16/25 05:30 01/16/25 03:50 01/15/25 22:09 Urine Color Light-yellow (Yellow) Urine Clarity Clear (Clear) Urine pH 7.5 (5.0-9.0) Urine Specific [place] 1.014 (1.001-1.035) Urine Protein Negative (Negative) Urine Ketones Negative (Negative) Urine Blood Negative /uL (Negative) Urine Nitrite Negative (Negative) Urine Bilirubin Negative (Negative) Urine Urobilinogen Normal mg/dL (Negative) Urine Leukocyte Esterase Negative /uL (Negative) Urine RBC <1 /hpf (0 - 3) Urine Microscopic WBC 1 /HPF (0-3) Urine Squamous Epithelial Cells Few /hpf (<5) Urine Bacteria None seen /hpf (None Seen) Urine Glucose Normal mg/dL (Normal) Urine Opiates Screen Neg (NEGATIVE) Urine Fentanyl Screen Neg (NEGATIVE) Urine Barbiturates Screen Neg (NEGATIVE) Urine Phencyclidine Screen Neg (NEGATIVE) Urine Amphetamines Screen Neg (NEGATIVE) Urine Benzodiazepines Screen Neg (NEGATIVE) Urine Cocaine Screen Neg (NEGATIVE) Urine Cannabinoids Screen Neg (NEGATIVE) Triglycerides Level 82 mg/dL (< 150) Cholesterol Level 172 mg/dL (< 200) LDL Cholesterol 132 mg/dL (< 100) HDL Cholesterol 36 mg/dL (40-59) White Blood Count 7.8 10^3/uL (4.4-10.8) Red Blood Count 5.34 10^6/uL (4.5-5.90) Hemoglobin 14.4 g/dL (13.5-17.5) Hematocrit 42.5 % (41.0-53.0) Mean Corpuscular Volume 79.5 fL (80.0-100.0) Mean Corpuscular Hemoglobin 27.0 pg (28.0-32.0) Mean Corpuscular Hemoglobin Concent 34.0 g/dL (32.0-36.0) Red Cell Distribution Width 14.6 % (11.8-14.3) Platelet Count 246 10^3/uL (140-450) Mean Platelet Volume 8.0 fL (6.9-10.8) Neutrophils (%) (Auto) 60.5 % (37.0-80.0) Lymphocytes (%) (Auto) 30.7 % (10.0-50.0) Monocytes (%) (Auto) 6.3 % (0.0-12.0) Eosinophils (%) (Auto) 2.1 % (0.0-7.0) Basophils (%) (Auto) 0.4 % (0.0-2.0) Neutrophils # (Auto) 4.7 10 ^3/uL (1.6-8.6) Lymphocytes # (Auto) 2.4 10 ^3/uL (0.4-5.4) Monocytes # (Auto) 0.5 10 ^3/uL (0-1.3) Eosinophils # (Auto) 0.2 10 ^3/uL (0-0.8) Basophils # (Auto) 0 10 ^3/uL (0-0.2) Nucleated Red Blood Cells 0.2 % Sodium Level 144 mmol/L (136-145) Potassium Level 3.9 mmol/L (3.5-5.1) Chloride Level 112 mmol/L (98-107) Carbon Dioxide Level 24 mmol/L (20-31) Anion Gap 8 (5-15) Blood Urea Nitrogen 9 mg/dL (9-23) Creatinine 1.30 mg/dL (0.700-1.30) Glomerular Filtration Rate Calc 72 mL/min (>90) BUN/Creatinine Ratio 6.9 (10.0-20.0) Serum Glucose 84 mg/dL (74-106) Hemoglobin A1c 5.2 % A1C (<5.7) Calcium Level 9.1 mg/dL (8.7-10.4) Total Bilirubin 0.3 mg/dL (0.2-1.0) Aspartate Amino Transferase (AST) 25 U/L (13-40) Alanine Aminotransferase (ALT) 19 U/L (7-40) Alkaline Phosphatase 53 U/L (46-116) Total Protein 5.8 g/dL (5.7-8.2) Albumin 3.9 g/dL (3.2-4.8) Vitamin B12 Level 455 pg/mL (211-911) Vitamin D 25-Hydroxy 25.4 ng/mL (30.0-100) Folic Acid 8.52 ng/mL (>5.38) Thyroid Stimulating Hormone (TSH) 1.44 uIU/mL (0.55-4.78) Plasma/Serum Blood Alcohol < 3.0 mg/dL (<10) Troponin I High Sensitivity 3 ng/L (</=54) Test 01/15/25 19:01 B-Type Natriuretic Peptide 8.28 pg/mL (0-100) Other Laboratory Tests 01/16/25 03:50 Brief Hx & Hospital Course: 40-year-old male with history of hypertension (not on meds) and morbid obesity presented with intermittent sharp, non-radiating chest pain ongoing for 1 month, aggravated by anxiety and associated with palpitations, dyspnea, and diaphoresis. No fever, cough, diarrhea, joint swelling, or dysarthria. Denies smoking or drug use, occasional alcohol use. No prior cardiac history. Hospital Course Initial Vitals: * BP ranged 560728/7897 mmHg * HR: 6377 bpm * Temp: Afebrile * SpO?: 9697% on room air Cardiac Workup: * EKG: Initial showed sinus tachycardia with Q-waves in aVL, V1, V2 (suggesting old anteroseptal infarct); repeat EKG showed normal sinus rhythm, no significant ST/T changes, low voltage in precordial leads * Troponin I: Normal serial values * BNP: Normal * CXR: No acute cardiopulmonary disease * Echo: Ordered, pending at time of AMA discharge * Cardiology Consultation: Concluded negative cardiovascular workup, no further intervention needed unless echo abnormal. Cleared for discharge. Labs: * Creatinine: 1.3 (baseline unknown); mild FRANCES likely volume-mediated (VMN) * Potassium: 3.9 * Hb: Mild downtrend from 15.6 ? 14.4, macrocytic indices * Lipid panel: LDL 132 mg/dL * HbA1c: 5.2% * UA, tox screen: Normal, negative * TSH: Normal Assessment from primary and CV team: * Chest pain likely due to anxiety/panic attack; ACS ruled out * No evidence of myocarditis or pericarditis * FRANCES likely due to mild dehydration * Morbid obesity educated on lifestyle and cardiovascular risks * Hypertension uncontrolled, needs long-term management * Dyslipidemia needs statin compliance Treatment Provided: * Aspirin 81 mg PO administered * Atorvastatin 40 mg PO qHS prescribed, patient initially refused * Lisinopril 20 mg PO daily ordered * IV Normal Saline 125 mL/hr, then 1,000 mL/hr received * Pantoprazole 40 mg PO daily refused * Tylenol 650 mg PO given once for chest pain * Nitroglycerin PRN ordered, not used * Serial cardiac enzymes and ECGs monitored, unremarkable * Code status: Full code; discussed at bedside (>15 minutes) Despite reassurance and a stable workup, the patient elected to leave AMA before completing full cardiac evaluation (2D echo pending), after discussion of risks and alternatives. Consults/Reason for consult Cardiology ACS Rule out and recurrent chest pain. Operations or Procedures PATIENT: DARCI BROWN ACCT: [id number] UNIT: [id number] : 1985 LOC: ER ROOM / BED: / AGE / SEX: 40 / M ADM STATUS: REG ER SERVICE 185 ORDERING PHYSICIAN: STACY GAMEZ MD PROCEDURE(s): CXR1 - CHEST XRAY 1 VIEW REASON: cp ORDER NUMBER(s): [id number], ACCESSION NUMBER(s): [id number] CHEST RADIOGRAPH Indication: cp Technique: Single frontal view of the chest was obtained Comparison: XY CHEST PORTABLE on DOS: 12/21/24 FINDINGS: Lines and Tubes: None Lungs: No focal consolidation. Pleura: No effusion. No pneumothorax. Cardiomediastinal contours: Unremarkable Bones: No acute osseous abnormality. IMPRESSION: 1. No acute cardiopulmonary disease. ATED BY: DAVION MCGHEE MD DICTATED DATE/TIME: 01/15/251944 SIGNED BY: DAVION MCGHEE MD SIGNED DATE/TIME: 01/15/251944 CC: Condition at Discharge: Stable Final Diagnosis/Problems List FRANCES, likely VMN Chest pain, likely due to anxiety/panic attack, ruled out ACS Hypertension, uncontrolled Morbid obesity Discharge Disposition: AMA Discharge Instruct/Medications Care Plan: Stable, alert, oriented, tolerating oral intake, afebrile, hemodynamically stable. Patient signed AMA form acknowledging risks and left the facility. Scheduled Cephalexin Monohydrate (Cephalexin), 1 CAP PO QID Scheduled PRN Ibuprofen Micronized (Ibuprofen), 1 TAB PO Q6HPRN PRN Discharge Statement: "Patient was advised to return to the ER or call 911 if any headaches, dizziness, shortness of breath, chest pain, abdominal pain, bleeding, fevers, or worsening of medical condition. Patient was counseled about treatment plan, medications, possible side effects, patientverbalized understanding. All questions were answered to the best of my ability. This discharge took greater then 30 minutes in planning, reviewing documentation, counseling the patient, and discussing with other team members." ASSESSMENT ASSESSMENT Assessment Date of Service: Jan 16, 2025 Billing Provider: VIDHYA WHITE MD Common Visit Codes: NOT BILLABLE ELDON FLANAGAN RESIDENT Jan 16, 2025 22:33 VIDHYA WHITE MD Jan 17, 2025 10:37
[2025-01-17] MEDS ORDERED: LISINOPRIL 20 MG TAB PO SCH (10:00)
--- NOTE | 2025-01-17 15:39 | DVHSR ---
APPROVED REPORT EXAM: Two-dimensional and M-mode echocardiogram with Doppler and color Doppler. Blood Pressure: 128/78 mmHg INDICATION Chest Pain RISK FACTORS Obesity: Height: 6'0", Weight: 291 DIMENSIONS LVDd4.6 (3.8-5.7cm)LA (2D)3.4 (1.9-4.0cm)Aortic Root4.0 (2.0-3.7cm) LVDs3.1 (2.5-4.0cm)LA (MM) (1.9-4.0cm)Aortic Cusp Exc2.3 (1.5-2.0cm) EF (%) 60.0 (55-70%)Rt. Atrium3.7 (1.9-4.0cm)Asc. Aorta cm IVSd1.1 (0.7-1.1cm)RV (D) (1.8-2.4cm) PWd1.2 (0.7-1.1cm) Mitral Valve MitralMitral Stenosis E wave0.71m/sMV Mean GR.mmHg A wave0.83m/sMV Peak GR.mmHg E/A ratio0.92D MVAcm2 DECEL [id number] 1/2 Timems Aortic Valve Aortic ValveAortic Stenosis V11.10m/Grace Mean GR.4mmHg V21.41m/Garce Peak GR.8mmHg LVOT Diameter2.3 (1.8-2.4cm)Doppler AVA3.24cm2 Pulmonic Valve V20.93m/s Conclusion lvef 65% normal rv function normal atria
== END 2025-01-16 14:24 | disposition left against medical advice (07) | DRG 203 ==
LOC: EDBD 18:19 → ER 18:19 → OVERFLOW 23:40
PROVIDERS: ADMIT Student in an Organized Health Care Education/Training Program; ATTEND Student in an Organized Health Care Education/Training Program
DX: R07.89 Other chest pain (principal); N17.0 Acute kidney failure with tubular necrosis; F41.0 Panic disorder [episodic paroxysmal anxiety]; E66.01 Morbid (severe) obesity due to excess calories; I10 Essential (primary) hypertension; Z53.29 Procedure and treatment not carried out because of patient's decision for other reasons; E78.5 Hyperlipidemia, unspecified; Z79.1 Long term (current) use of non-steroidal anti-inflammatories (NSAID); Z79.899 Other long term (current) drug therapy; Z79.2 Long term (current) use of antibiotics; Z68.39 Body mass index [BMI] 39.0-39.9, adult
CPT/HCPCS: 36415; 71045; 80053; 80061; 80307; 80320; 81001; 82306; 82607; 82746; 83036; 83880; 84443; 84484; 85025; 93005; 93306; G0378

== ENCOUNTER 2025-02-06 21:32 | Emergency (ER) | payer MEDICAID ==
[~2025-02-06] VITALS: Ht 185.4 cm; Wt 131.8 kg
--- NOTE | 2025-02-06 21:53 | ED.PDOC ---
History of Present Illness HPI Comments 40 y/o obese M presents with c/c nonradiating, sternal chest pain, with radiation to the left chest wall and arm. Patient endorses on sudden, unprovoked, and atraumatic onset of pain, approximately, an hour prior to arrival. He states on the pain subsiding on its own, initially, and returning, again, upon arrival. Pain in his sternum is described as burning, pressure-like, and tight in quality, while he describes his arm pain as only tightness. Significant history of anxiety, asthma, FRANCES, HLD, and HTN. No recent life stressors, strenuous activities, lifestyle changes, or pertinent history endorsed. Denies any shortness of breath, nausea, vomiting, diarrhea, or further associated symptoms. Time Seen by MD: 21:40 Primary Care Provider: UNKNOWN Reviewed Notes: Nurses Notes, Medications, Allergies Allergies: Coded Allergies: NO KNOWN ALLERGIES (Unverified , 11/12/20) Home Meds Active Scripts Ibuprofen Micronized (Ibuprofen) 600 Mg Tab, 1 TAB PO Q6HPRN PRN, #20 TAB As needed for pain Prov:MARYJANE KINNEY NP 07/03/23 Cephalexin Monohydrate (Cephalexin) 500 Mg Cap, 1 CAP PO QID for 5 Days, #20 CAP 0 Refills Prov:BALTAZAR MARINO 03/04/23 Information Source: Patient Mode of Arrival: Ambulatory Severity: Moderate Timing: Hours Duration: Since onset Prehospital treatment: None Past Medical History PAST MEDICAL HISTORY: Anxiety, Asthma, High Lipids, HTN Past Medical History (Other): obesity FRANCES 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) Surgical History: Denies all surgeries Family History Family History: Reviewed,noncontributory to illness Social History Smoker: Non-Smoker Alcohol: Occasionally Drugs: Denies Drug Use Lives In: Home All Other Systems: Reviewed and Negative (Comprehensive systems review obtained and negative except for what is stated in the HPI.) Physical Exam General Appearance: Mild Distress, Obese HEENT: Normal ENT Inspection, Pharynx Normal, TMs Normal Neck: Full Range of Motion, Non-Tender, Normal, Normal Inspection Respiratory: Chest Non-Tender, Lungs Clear, No Accessory Muscle Use, No Respiratory Distress, Normal Breath Sounds Cardiovascular: No Edema, No JVD, No Murmur, No Gallop, Normal Peripheral Pulses, Regular Rate/Rhythm Breast Exam: Deferred Gastrointestinal: No Organomegaly, Non Tender, No Pulsatile Mass, Normal Bowel Sounds, Soft Genitalia: Deferred Pelvic: Deferred Rectal: Deferred Extremities: No calf tenderness, Normal capillary refill, Normal inspection, Normal range of motion, Non-tender, No pedal edema Musculoskeletal : Apperance: Normal Neurologic: Alert, 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 Was a procedure done?: No EKG EKG : Pulse Rate (adult): 93 [place]: Normal Cardiac Rhythm: NSR Block: None Hypertrophy: None ST: Normal Differential Dx Considerations may include: GA, PE, ACS, URI, PNA, angina, anxiety, among others X-Ray, Labs, Meds, VS Vital Signs Date Time Temp Pulse Resp B/P (MAP) Pulse Ox O2 Delivery O2 Flow Rate FiO2 02/07/25 00:04 Room Air* 0 21 02/07/25 00:02 99.0 81 18 143/87 (105) 99 99.0 02/06/25 22:33 81 02/06/25 21:53 93 02/06/25 21:45 98.8 94 16 140/93 (109) 100 98.8 02/06/25 21:35 93 Lab Test 02/06/25 22:30 02/06/25 21:36 Range/Units Troponin I High Sensitivity 6 6 </=54 ng/L White Blood Count 8.7 4.4-10.8 10^3/uL Red Blood Count 5.83 4.5-5.90 10^6/uL Hemoglobin 15.6 13.5-17.5 g/dL Hematocrit 46.7 41.0-53.0 % Mean Corpuscular Volume 80.0 80.0-100.0 fL Mean Corpuscular Hemoglobin 26.8 L 28.0-32.0 pg Mean Corpuscular Hemoglobin Concent 33.5 32.0-36.0 g/dL Red Cell Distribution Width 14.7 H 11.8-14.3 % Platelet Count 280 140-450 10^3/uL Mean Platelet Volume 7.8 6.9-10.8 fL Neutrophils (%) (Auto) 62.7 37.0-80.0 % Lymphocytes (%) (Auto) 27.2 10.0-50.0 % Monocytes (%) (Auto) 8.1 0.0-12.0 % Eosinophils (%) (Auto) 1.6 0.0-7.0 % Basophils (%) (Auto) 0.4 0.0-2.0 % Neutrophils # (Auto) 5.4 1.6-8.6 10 ^3/uL Lymphocytes # (Auto) 2.4 0.4-5.4 10 ^3/uL Monocytes # (Auto) 0.7 0-1.3 10 ^3/uL Eosinophils # (Auto) 0.1 0-0.8 10 ^3/uL Basophils # (Auto) 0 0-0.2 10 ^3/uL Nucleated Red Blood Cells 0.1 % Sodium Level 144 136-145 mmol/L Potassium Level 3.5 3.5-5.1 mmol/L Chloride Level 107 98-107 mmol/L Carbon Dioxide Level 29 20-31 mmol/L Anion Gap 8 5-15 Blood Urea Nitrogen 9 9-23 mg/dL Creatinine 1.42 H 0.700-1.30 mg/dL Glomerular Filtration Rate Calc 64 >90 mL/min BUN/Creatinine Ratio 6.3 L 10.0-20.0 Serum Glucose 85 74-106 mg/dL Calcium Level 9.8 8.7-10.4 mg/dL Total Bilirubin 0.3 0.2-1.0 mg/dL Aspartate Amino Transferase (AST) 22 13-40 U/L Alanine Aminotransferase (ALT) 17 7-40 U/L Alkaline Phosphatase 49 46-116 U/L Total Protein 6.3 5.7-8.2 g/dL Albumin 4.2 3.2-4.8 g/dL [address] [address] Ph: [phone] DIAGNOSTIC IMAGING Diagnostic Imaging Report : [id number] Signed PATIENT: DARCI BROWN ACCT: [id number] UNIT: [id number] : 1985 LOC: ER ROOM / BED: / AGE / SEX: 40 / M ADM STATUS: REG ER SERVICE 43 ORDERING PHYSICIAN: MANUEL MARTINEZ MD PROCEDURE(s): CXRP - CHEST PORTABLE REASON: chest pain ORDER NUMBER(s): [id number], ACCESSION NUMBER(s): [id number] CHEST RADIOGRAPH REASON FOR EXAM: chest pain COMPARISON: XY CHEST XRAY 1 VIEW on DOS: 01/15/25, XY CHEST PORTABLE on DOS: 12/21/24 TECHNIQUE: One view of the chest is provided FINDINGS: The cardiomediastinal silhouette is within normal limits for technique. There is no focal airspace disease. There is no significant pleural effusion. No acute bony abnormality is identified. IMPRESSION: No radiographic evidence of acute cardiopulmonary process. ATED BY: JAVIER FONTANEZ MD DICTATED DATE/TIME: 02/06/252212 SIGNED BY: JAVIER FONTANEZ MD SIGNED DATE/TIME: 02/06/252212 CC: Time of 1ST Reevaluation: 22:10 Reevaluation 1ST: Unchanged Patient Education/Counseling: Diagnosis, Treatment, Need For Follow Up Family Education/Counseling: No Family Present SEPSIS Sepsis Screen Physician Orders Electrocardigram (02/06/25 22:33) Chest Portable (02/06/25 21:44) Vital Signs Date Time Temp Pulse Resp B/P (MAP) Pulse Ox O2 Delivery O2 Flow Rate FiO2 02/07/25 00:04 Room Air* 0 21 02/07/25 00:02 99.0 81 18 143/87 (105) 99 99.0 02/06/25 22:33 81 02/06/25 21:53 93 02/06/25 21:45 98.8 94 16 140/93 (109) 100 98.8 02/06/25 21:35 93 Laboratory Tests Test 02/06/25 21:36 White Blood Count 8.7 10^3/uL (4.4-10.8) Departure 1 Departure Time of Disposition: 00:10 Impression: Primary Impression: Atypical chest pain Disposition: 01 HOME / SELF CARE / HOMELESS Condition: Stable Discharged With: Self Critical Care Note Critical Care Time?: No Stability Stability form required: No Heart Score Heart Score: Heart Score Response (Comments) Value History Moderate Suspicious 1 EKG Normal 0 Age <45 0 Risk Factors >3 or Hx ASHD 2 Troponin Normal limit 0 Total 3 I personally scribed for MANUEL MARTINEZ MD ([email or web address]) on 02/06/25 at 21:53. Electronically submitted by Ru Clement ([email or web address]). I personally scribed for MANUEL MARTINEZ MD ([email or web address]) on 02/06/25 at 22:25. Electronically submitted by Ru Clement ([email or web address]). MANUEL MARTINEZ MD Feb 06, 2025 21:53
[2025-02-06 22:00] LABS: Hematocrit 46.7 % (41.0-53.0); Hemoglobin 15.6 g/dL (13.5-17.5); Mean Corpuscular Hemoglobin 26.8 pg (28.0-32.0); Mean Corpuscular Volume 80.0 fL (80.0-100.0); Nucleated Red Blood Cells % 0.1 %
--- NOTE | 2025-02-06 22:16 | DVH ---
CHEST RADIOGRAPH REASON FOR EXAM: chest pain COMPARISON: XY CHEST XRAY 1 VIEW on DOS: 01/15/25, XY CHEST PORTABLE on DOS: 12/21/24 TECHNIQUE: One view of the chest is provided FINDINGS: The cardiomediastinal silhouette is within normal limits for technique. There is no focal a irspace disease. There is no significant pleural effusion. No acute bony abnormality is identified. IMPRESSION: No radiographic evidence of acute cardiopulmonary process.
[2025-02-06 22:18] LABS: Alanine Aminotransferase 17 U/L (7-40); Albumin 4.2 g/dL (3.2-4.8); Alkaline Phosphatase 49 U/L (46-116); Anion Gap 8 (5-15); BUN/Creatinine Ratio 6.3 (10.0-20.0); Bilirubin, Total 0.3 mg/dL (0.2-1.0); Calcium 9.8 mg/dL (8.7-10.4); Carbon Dioxide 29 mmol/L (20-31); Glucose 85 mg/dL (74-106); Potassium 3.5 mmol/L (3.5-5.1); Sodium 144 mmol/L (136-145); Total Protein 6.3 g/dL (5.7-8.2)
[2025-02-06 22:24] LABS: Blood Urea Nitrogen 9 mg/dL (9-23); Chloride 107 mmol/L (98-107)
--- NOTE | 2025-02-06 22:46 | ECG ---
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
[2025-02-07 00:02] VITALS: BP 143/87; PULSE 81; RESP 18; TEMP 99; O2SAT 99
--- NOTE | 2025-02-09 06:29 | ECG ---
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
== END 2025-02-07 00:06 | disposition home or self-care (01) ==
LOC: ER 21:33
DX: R07.2 Precordial pain (principal); F10.90 Alcohol use, unspecified, uncomplicated; J45.909 Unspecified asthma, uncomplicated; F41.9 Anxiety disorder, unspecified; E78.5 Hyperlipidemia, unspecified; I10 Essential (primary) hypertension; I25.2 Old myocardial infarction; E66.9 Obesity, unspecified; Z79.899 Other long term (current) drug therapy; Z68.38 Body mass index [BMI] 38.0-38.9, adult; Y90.9 Presence of alcohol in blood, level not specified
CPT/HCPCS: 36415; 71045; 80053; 84484; 85025; 93005

== ENCOUNTER 2025-04-12 14:24 | Emergency (ER) | payer MEDICAID ==
[~2025-04-12] VITALS: Ht 185.4 cm; Wt 130.8 kg
[2025-04-12 14:25] VITALS: BP 146/95; PULSE 101; RESP 18; TEMP 98.4; O2SAT 98
--- NOTE | 2025-04-12 15:19 | ED.PDOC ---
History of Present Illness HPI Comments A 40 YEAR OLD MALE PRESENTS TO THE ED WITH COMPLAINT OF UE. PATIENT REPORTS AN HAVING LEFT ARM PAIN FOR THE PAST 3 WEEKS IN HIS CONCERNED OF A POSSIBLE DVT. PT IS ABLE TO MOVE HIS LEFT UPPER EXTREMITY WITH NORMAL ROM. PATIENT DENIES FEVER, CHILLS, SHORTNESS OF BREATH, CHEST PAIN, ABDOMINAL PAIN, NAUSEA, VOMITING, HEADACHE, OR OTHER COMPLAINTS. NO OTHER SYMPTOMS OR MODIFYING FACTORS AT THIS TIME. PATIENT IS ALERT, ORIENTED X 4, AND HAS STEADY GAIT. Chief Complaint: Upper Extremity Time Seen by MD: 15:15 Primary Care Provider: UNKNOWN Reviewed Notes: Nurses Notes, Medications, Allergies Allergies: Coded Allergies: NO KNOWN ALLERGIES (Unverified , 11/12/20) Home Meds Active Scripts Ibuprofen Micronized (Ibuprofen) 600 Mg Tab, 1 TAB PO Q6HPRN PRN, #20 TAB As needed for pain Prov:MARYJANE KINNEY CULTURE MANAGER 07/03/23 Cephalexin Monohydrate (Cephalexin) 500 Mg Cap, 1 CAP PO QID for 5 Days, #20 CAP 0 Refills Prov:BALTAZAR MARINO 03/04/23 Information Source: Patient Mode of Arrival: Ambulatory Severity: Mild, Moderate Timing: Weeks Duration: Since onset, Days Prehospital treatment: None Medication Refill: For: Pain (LEFT UPPER ARM ) Past Medical History PAST MEDICAL HISTORY: Anxiety, Asthma, High Lipids, HTN Surgical History: Denies all surgeries Family History Family History: Reviewed,noncontributory to illness, Unknown Social History Smoker: Non-Smoker Alcohol: Occasionally Drugs: Denies Drug Use Lives In: Home Constitutional: denies: chills, diaphoresis, fatigue, fever, malaise, sweats, weakness, others EENTM: denies: blurred vision, double vision, ear bleeding, ear discharge, ear drainage, ear pain, ear ringing, eye pain, eye redness, hearing loss, mouth pain, mouth swelling, nasal discharge, nose bleeding, nose congestion, nose pain, photophobia, tearing, throat pain, throat swelling, voice changes, others Respiratory: denies: cough, hemoptysis, orthopnea, SOB at rest, shortness of breath, SOB with excertion, stridor, wheezing, others Cardiovascular: denies: chest pain, dizzy spells, diaphoresis, Dyspnea on exertion, edema, irregular heart beat, left arm pain, lightheadedness, palpitations, PND, syncope, others Gastrointestinal: denies: abdomen distended, abdominal pain, blood streaked bowels, constipated, diarrhea, dysphagia, difficulty swallowing, hematemesis, melena, nausea, poor appetite, poor fluid intake, rectal bleeding, rectal pain, vomiting, others Genitourinary: denies: burning, dysuria, flank pain, frequency, hematuria, incontinence, penile discharge, penile sore, pain, testicle pain, testicle swelling, urgency, others Neurological: denies: dizziness, fainting, headache, left sided numbness, left sided weakness, numbness, paresthesia, pre-existing deficit, right sided num bness, right sided weakness, seizure, speech problems, tingling, tremors, weakness, others Musculoskeletal: reports: muscle pain, others (LEFT UPPER EXTREMITY); denies: back pain, gout, joint pain, joint swelling, muscle stiffness, neck pain Integumetry: denies: bruises, change in color, change in hair/nails, dryness, laceration, lesions, lumps, rash, wounds, others Allergic/Immunocompromised: denies: Difficulty Healing, Frequent Infections, Hives, Itching, others Hematologic/Lymphatic: denies: anemia, blood clots, easy bleeding, easy bruising, swollen glands, others Endocrine: denies: excessive hunger, excessive sweating, excessive thirst, excessive urination, flushing, intolerance to cold, intolerance to heat, unexplained weight gain, unexplained weight loss, others Psychiatric: denies: anxiety, bipolar disorder, depression, hopeless, panic disorder, schizophrenia, sleepless, suicidal, others All Other Systems: Reviewed and Negative Physical Exam General Appearance: No Apparent Distress, Normal HEENT: Normal ENT Inspection, PERRL/EOMI, Pharynx Normal, TMs Normal Neck: Full Range of Motion, Non-Tender, Normal, Normal Inspection Respiratory: Chest Non-Tender, Lungs Clear, No Accessory Muscle Use, No Respiratory Distress, Normal Breath Sounds Cardiovascular: No Edema, No JVD, No Murmur, No Gallop, Normal Peripheral Pulses, Regular Rate/Rhythm Breast Exam: Deferred Gastrointestinal: No Organomegaly, Non Tender, No Pulsatile Mass, Normal Bowel Sounds, Soft Genitalia: Deferred Pelvic: Deferred Rectal: Deferred Extremities: No calf tenderness, Normal capillary refill, Normal inspection, Normal range of motion, No pedal edema, Tender (ON LEFT INNER ARM, +MUSCLE TIGHTNESS, NO REDNESS, SWELLING AND DEFORMITY, NO DVT SIGNS. ) Musculoskeletal : Apperance: Normal Neurologic: Alert, information systems consultant II-XII nml as Tested, No Motor Deficits, Normal Affect, Normal Mood, No Sensory Deficits Cerebellar Function: Normal Reflexes: Normal Skin: Dry, Normal Color, Warm Peripheral Pulses: 2+ carotid (R), 2+ carotid (L), 2+ Radial (R), 2+ Radial (L) Lymphatic: No Adenopathy Was a procedure done? Was a procedure done?: No Differential Dx Considerations may include: MUSCLE STRAIN OF LEFT ARM, DVT OF LEFT ARM X-Ray, Labs, Meds, VS Vital Signs Date Time Temp Pulse Resp B/P (MAP) Pulse Ox O2 Delivery O2 Flow Rate FiO2 04/12/25 14:25 98.4 101 18 146/95 98 98.4 PATIENT: DARCI BROWNACCT: [id number]: [id number] : 1985 LOC: ER ROOM / BED: / AGE / SEX: 40 / M ADM STATUS: REG ER SERVICE 1501 ORDERING PHYSICIAN: JANINE ORTEGA PROCEDURE(s): LUDVT - LT Upper DVT REASON: PAIN X 3 WEEKS ORDER NUMBER(s): [id number], ACCESSION NUMBER(s): [id number] History: PAIN X 3 WEEKS Comparison: None Technique: Duplex sonography of the left upper extremity with color and spectral Doppler, with and without compression. Findings: Left upper extremity venous Doppler demonstrates patent and normal flow signals at all levels. Venous imaging demonstrates patent and compressible vessels. Negative for intraluminal thrombus. IMPRESSION: 1. No evidence of left upper extremity deep venous thrombosis. ATED BY: SEB SEYMOUR MD DICTATED DATE/TIME: 04/12/251537 SIGNED BY: SEB SEYMOUR MD SIGNED DATE/TIME: 04/12/251537 CC: X-Ray, Labs, Meds, VS Comment EXTERNAL MEDICAL RECORDS REVIEWED: [NONE] INDEPENDENT HISTORIANS: [NONE] SOCIAL DETERMINANTS OF HEALTH: [NONE] LABS ORDERED: NONE REVIEWED AND INTERPRETED RESULTS: NONE IMAGING ORDERED: ULTRASOUND TREATMENTS ORDERED: NONE PROCEDURES PERFORMED: NONE CRITICAL CARE TIME: NONE I HAVE DISCUSSED THE PATIENT WITH THE ATTENDING PHYSICIAN DR. LUCAS AND HE AGREES WITH THE PATIENT'S PLAN OF CARE AND DISPOSITION. BASED ON HISTORY OF PRESENT ILLNESS, AND PHYSICAL EXAM, PATIENT WILL BE DISCHARGED. SHARED DECISION MAKING: DISCUSSED WITH PATIENT THAT THEIR WORKUP WAS NORMAL. P ATIENT INSTRUCTED TO FOLLOW UP WITH PRIMARY CARE PROVIDER IN 1-2 DAYS FOR RE- EVALUATION OF SYMPTOMS. PATIENT VERBALIZES UNDERSTANDING TO RETURN TO ED FOR NEW OR WORSENING SYMPTOMS OR IF FOLLOW UP WITH PCP CANNOT BE OBTAINED. PATIENT FEELS COMFORTABLE GOING HOME AT THIS TIME. ALL QUESTIONS ADDRESSED AT TIME OF DISCHARGE. Time of 1ST Reevaluation: 16:00 Reevaluation 1ST: Improved Patient Education/Counseling: Diagnosis, Treatment, Need For Follow Up Family Education/Counseling: Diagnosis, Treatment, No Family Present Medical Screening: No EMC Exist At This Time SEPSIS Sepsis Screen Date sepsis recognized/suspect: Apr 12, 2025 Time Sepsis recognized/suspect: 142 Recent Procedure: No On Antibiotic Therapy: No Respiratory Rate >20: No Heart Rate >90: Yes Temp<36 C (96.8 F) or >38.3 C: No SBP <90 or MAP <65 mmHG: No New Acute Mental Status Change: No Is the patient on CPAP, BIPAP,: No Physician Orders Lt Upper Dvt (04/12/25 15:01) Vital Signs Date Time Temp Pulse Resp B/P (MAP) Pulse Ox O2 Delivery O2 Flow Rate FiO2 04/12/25 14:25 98.4 101 18 146/95 98 98.4 Departure 1 Departure Time of Disposition: 16:00 Impression: Primary Impression: Muscle strain of left upper arm Qualified Codes: S46.912A - Strain of unspecified muscle, fascia and tendon at shoulder and upper arm level, left arm, initial encounter Disposition: HOME / SELF CARE / HOMELESS Condition: Stable Additional Instructions: FOLLOW-UP WITH PCP IN 1 TO 2 DAYS. TAKE MEDICATIONS PRESCRIBED. RETURN TO ED FOR ANY NEW OR WORSENING SYMPTOMS. Discharged With: Self Critical Care Note Critical Care Time?: No Stability Stability form required: No I personally scribed for JANINE ORTEGA ([email or web address]) on 04/12/25 at 15:19. Electronically submitted by Chilo Kapadia ([email or web address]). I personally scribed for JANINE ORTEGA ([email or web address]) on 04/12/25 at 15:46. Electronically submitted by Chilo Kapadia ([email or web address]). JANINE ORTEGA Apr 12, 2025 15:19
--- NOTE | 2025-04-12 15:41 | DVH ---
History: PAIN X 3 WEEKS Comparison: None Technique: Duplex sonography of the left upper extremity with color and spectral Doppler, with and wi thout compression. Findings: Left upper extremity venous Doppler demonstrates patent and normal flow signals at all levels. Venou s imaging demonstrates patent and compressible vessels. Negative for intraluminal thrombus. IMPRESSION: 1. No evidence of left upper extremity deep venous thrombosis.
== END 2025-04-12 15:53 | disposition home or self-care (01) ==
LOC: ER 14:30
DX: S46.912A Strain of unspecified muscle, fascia and tendon at shoulder and upper arm level, left arm, initial encounter (principal); J45.909 Unspecified asthma, uncomplicated; I10 Essential (primary) hypertension; X58.XXXA Exposure to other specified factors, initial encounter; Y93.89 Activity, other specified; Y92.89 Other specified places as the place of occurrence of the external cause; Y99.8 Other external cause status
CPT/HCPCS: 93971

== ENCOUNTER 2025-05-02 05:44 | Inpatient (IN) | payer MEDICAID ==
[~2025-05-02] VITALS: Ht 177.8 cm; Wt 147.0 kg
--- NOTE | 2025-05-02 05:57 | ECG ---
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
[2025-05-02] MEDS: hydrALAZINE HCL 20 MG/ML VL IV ONE (06:30)
[2025-05-02] MEDS: ACETAMINOPHEN 325 MG TAB PO ONE (06:30)
--- NOTE | 2025-05-02 06:41 | ED.PDOC ---
HPI Comments 40 year old male with PMHx anxiety, asthma, HLD, HTN presents to the ED with a chief complaint of hypertension onset last night. Patient states he had pork for dinner, began experiencing headache around 20:00, went to sleep. He woke up around 04:00, took HTN medication, checked BP, was 182/120, went back to sleep. Patient began experiencing chest tightness with shortness of breath, called 911. Upon EMS arrival, BP was 194/107. Upon ED arrival, shortness of breath and chest tightness has resolved. Denies fever, chills, nausea, vomiting, diarrhea, cough, congestion, sore throat, dysuria, hematuria, hematemesis. No other symptoms or modifying factors present at this time. Chief Complaint: High Blood Pressure Time Seen by MD: 06:30 Primary Care Provider: UNKNOWN Reviewed Notes: Medications, Allergies Allergies: Coded Allergies: NO KNOWN ALLERGIES (Unverified , 11/12/20) Home Meds Active Scripts Ibuprofen Micronized (Ibuprofen) 600 Mg Tab, 1 TAB PO Q6HPRN PRN, #20 TAB As needed for pain Prov:MARYJANE KINNEY NP 07/03/23 Cephalexin Monohydrate (Cephalexin) 500 Mg Cap, 1 CAP PO QID for 5 Days, #20 CAP 0 Refills Prov:BALTAZAR MARINO 03/04/23 Information Source: Patient Mode of Arrival: EMS Severity: Moderate Timing: Hours Duration: Since onset Prehospital treatment: None Quality: Tightness Onset: At Rest Cardiac Risk Factors: Hyperlipidemia, HTN PE Risk Factors: None History of: None Modifying Factors: Nothing Associated Signs and Symptoms: SOB Past Medical History PAST MEDICAL HISTORY: Anxiety, Asthma, High Lipids, HTN Surgical History: Denies all surgeries Family History Family History: Reviewed,noncontributory to illness, Unknown Social History Smoker: Non-Smoker Alcohol: Occasionally Drugs: Denies Drug Use Lives In: Home Constitutional: denies: chills, diaphoresis, fatigue, fever, malaise, sweats, weakness, others EENTM: denies: blurred vision, double vision, ear bleeding, ear discharge, ear drainage, ear pain, ear ringing, eye pain, eye redness, hearing loss, mouth pain, mouth swelling, nasal discharge, nose bleeding, nose congestion, nose pain, photophobia, tearing, throat pain, throat swelling, voice changes, others Respiratory: reports: shortness of breath; denies: cough, hemoptysis, orthopnea, SOB at rest, SOB with excertion, stridor, wheezing, others Cardiovascular: reports: chest pain, others (hypertension); denies: dizzy spells, diaphoresis, Dyspnea on exertion, edema, irregular heart beat, left arm pain, lightheadedness, palpitations, PND, syncope Gastrointestinal: denies: abdomen distended, abdominal pain, blood streaked bowels, constipated, diarrhea, dysphagia, difficulty swallowing, hematemesis, melena, nausea, poor appetite, poor fluid intake, rectal bleeding, rectal pain, vomiting, others Genitourinary: denies: burning, dysuria, flank pain, frequency, hematuria, incontinence, penile discharge, penile sore, pain, testicle pain, testicle swelling, urgency, others Neurological: denies: dizziness, fainting, headache, left sided numbness, left sided weakness, numbness, paresthesia, pre-existing deficit, right sided numbness, right sided weakness, seizure, speech problems, tingling, tremors, weakness, others Musculoskeletal: denies: back pain, gout, joint pain, joint swelling, muscle pain, muscle stiffness, neck pain, others Integumetry: denies: bruises, change in color, change in hair/nails, dryness, laceration, lesions, lumps, rash, wounds, others Allergic/Immunocompromised: denies: Difficulty Healing, Frequent Infections, Hives, Itching, others Hematologic/Lymphatic: denies: anemia, blood clots, easy bleeding, easy bruising, swollen glands, others Endocrine: denies: excessive hunger, excessive sweating, excessive thirst, excessive urination, flushing, intolerance to cold, intolerance to heat, unexplained weight gain, unexplained weight loss, others Psychiatric: denies: anxiety, bipolar disorder, depression, hopeless, panic disorder, schizophrenia, sleepless, suicidal, others All Other Systems: Reviewed and Negative Physical Exam General Appearance: Normal HEENT: Normal ENT Inspection, Pharynx Normal, TMs Normal Neck: Full Range of Motion, Non-Tender, Normal, Normal Inspection Respiratory: Chest Non-Tender, Lungs Clear, No Accessory Muscle Use, No Respiratory Distress, Normal Breath Sounds Cardiovascular: No Edema, No JVD, No Murmur, No Gallop, Normal Peripheral Pulses, Regular Rate/Rhythm Breast Exam: Deferred Gastrointestinal: No Organomegaly, Non Tender, No Pulsatile Mass, Normal Bowel Sounds, Soft Genitalia: Deferred Pelvic: Deferred Rectal: Deferred Extremities: No calf tenderness, Normal capillary refill, Normal inspection, Normal range of motion, Non-tender, No pedal edema Musculoskeletal : Apperance: Normal 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 Was a procedure done?: No CP Differential Dx Differential Diagnosis: MAT, [place] Differential Diagnosis: CHF, HTN Essential, HTN Accelerated Differential Diagnosis: Gastritis, Myocardial Infarction, Pneumonia X-Ray, Labs, Meds, VS Vital Signs Date Time Temp Pulse Resp B/P (MAP) Pulse Ox O2 Delivery O2 Flow Rate FiO2 05/02/25 08:25 84 18 127/74 (91) 100 05/02/25 07:42 93 05/02/25 07:33 95 17 97 Room Air* 0 21 05/02/25 07:33 98.1 95 17 150/100 (117) 97 98.1 05/02/25 06:30 194/107 05/02/25 05:51 76 05/02/25 05:44 98.1 102 18 194/107 98 98.1 Lab Test 05/02/25 07:45 05/02/25 07:30 05/02/25 06:45 Range/Units Troponin I High Sensitivity 8 7 </=54 ng/L Urine Color Colorless Yellow Urine Clarity Clear Clear Urine pH 6.0 5.0-9.0 Urine Specific [place] 1.009 1.001-1.035 Urine Protein Negative Negative Urine Ketones Negative Negative Urine Blood Negative Negative /uL Urine Nitrite Negative Negative Urine Bilirubin Negative Negative Urine Urobilinogen Normal Negative mg/dL Urine Leukocyte Esterase Negative Negative /uL Urine RBC <1 0 - 3 /hpf Urine Microscopic WBC < 1 0-3 /HPF Urine Squamous Epithelial Cells None seen <5 /hpf Urine Bacteria None seen None Seen /hpf Urine Glucose Normal Normal mg/dL White Blood Count 6.6 4.4-10.8 10^3/uL Red Blood Count 5.63 4.5-5.90 10^6/uL Hemoglobin 15.2 13.5-17.5 g/dL Hematocrit 44.7 41.0-53.0 % Mean Corpuscular Volume 79.4 L 80.0-100.0 fL Mean Corpuscular Hemoglobin 27.0 L 28.0-32.0 pg Mean Corpuscular Hemoglobin Concent 34.1 32.0-36.0 g/dL Red Cell Distribution Width 14.7 H 11.8-14.3 % Platelet Count 258 140-450 10^3/uL Mean Platelet Volume 8.1 6.9-10.8 fL Neutrophils (%) (Auto) 61.5 37.0-80.0 % Lymphocytes (%) (Auto) 25.5 10.0-50.0 % Monocytes (%) (Auto) 8.7 0.0-12.0 % Eosinophils (%) (Auto) 3.8 0.0-7.0 % Basophils (%) (Auto) 0.5 0.0-2.0 % Neutrophils # (Auto) 4.0 1.6-8.6 10 ^3/uL Lymphocytes # (Auto) 1.7 0.4-5.4 10 ^3/uL Monocytes # (Auto) 0.6 0-1.3 10 ^3/uL Eosinophils # (Auto) 0.3 0-0.8 10 ^3/uL Basophils # (Auto) 0 0-0.2 10 ^3/uL Nucleated Red Blood Cells 0.1 % Sodium Level 141 136-145 mmol/L Potassium Level 3.7 3.5-5.1 mmol/L Chloride Level 104 98-107 mmol/L Carbon Dioxide Level 29 20-31 mmol/L Anion Gap 8 5-15 Blood Urea Nitrogen 10 9-23 mg/dL Creatinine 1.40 H 0.700-1.30 mg/dL Glomerular Filtration Rate Calc 66 >90 mL/min BUN/Creatinine Ratio 7.1 L 10.0-20.0 Serum Glucose 85 74-106 mg/dL Calcium Level 9.2 8.7-10.4 mg/dL Current Medications Medications (Trade) Dose Ordered Sig/Tigre Route Start Time Stop Time Status Last Admin Acetaminophen (Tylenol Tablet) 650 mg ONCE ONCE PO 05/02/25 06:30 05/02/25 06:36 DC 05/02/25 06:30 Hydralazine HCl (Apresoline Injection) 20 mg ONCE ONCE IV 05/02/25 06:30 05/02/25 06:36 DC 05/02/25 06:[address] [address] Ph: [phone] DIAGNOSTIC IMAGING Diagnostic Imaging Report : [id number] Signed PATIENT: DARCI BROWNACCT: [id number] UNIT: [id number] : 1985 LOC: ER ROOM / BED: / AGE / SEX: 40 / M ADM STATUS: REG ER SERVICE 4 ORDERING PHYSICIAN: LUIGI BARRERA MD PROCEDURE(s): HWOCT - HEAD WITHOUT CONTRAST REASON: cp , sob ORDER NUMBER(s): [id number], ACCESSION NUMBER(s): [id number] EXAM: CT HEAD WITHOUT CONTRAST INDICATION: CP, sob TECHNIQUE: CT of the head without intravenous contrast. Coronal and sagittal reformatted images are submitted. Radiation Dose : 1. Head: CT Dose: CTDI volume is 71.2 mGy. Dose-length product is 1401.6 mGy*cm The dose indicators for CT are the volume Computed Tomography (CT) Dose Index (CTDIvol) and the Dose Length Product (DLP), and are measured in units of mGy and mGy-cm, respectively. These indicators are not patient dose, but values generated from the CT scanner acquisition factors. The report includes radiation exposure data for exposures received during this examination. All CT scans at this medical facility are performed using dose modulation techniques as appropriate to a performed exam including the following: Automated exposure control was utilized; adjustment of the MA and/or KV according to patient size; and use of iterative reconstruction technique. COMPARISON: HEAD WITHOUT CONTRAST on DOS: 12/31/20 FINDINGS: There is no evidence of acute intracranial hemorrhage, extra-axial collection, mass effect, midline shift, herniation or hydrocephalus. The ventricles, sulci and cisterns are age appropriate. The hernandez-white differentiation is intact. The visualized paranasal sinuses and mastoid air cells are clear. No depressed calvarial fracture. The surrounding soft tissues are unremarkable. IMPRESSION: 1. No acute intracranial abnormality. ATED BY: AUGUSTINE FERRER MD DICTATED DATE/TIME: 05/02/25657 SIGNED BY: AUGUSTINE FERRER MD SIGNED DATE/TIME: 05/02/25657 CC: [place] [id number] Ph: [phone] DIAGNOSTIC IMAGING Diagnostic Imaging Report : [id number] Signed PATIENT: DARCI BROWNACCT: [id number] UNIT: [id number] : 1985 LOC: ER ROOM / BED: / AGE / SEX: 40 / M ADM STATUS: REG ER SERVICE 4 ORDERING PHYSICIAN: LUIGI BARRERA MD PROCEDURE(s): CXRP - CHEST PORTABLE REASON: cp , sob ORDER NUMBER(s): [id number], ACCESSION NUMBER(s): [id number] CHEST RADIOGRAPH Indication: cp , sob Technique: Single frontal view of the chest was obtained COMPARISON: XY CHEST PORTABLE on DOS: 02/06/25, XY CHEST XRAY 1 VIEW on DOS: 01/15/25, XY CHEST PORTABLE on DOS: 12/21/24 FINDINGS: Lines and Tubes: None Lungs: Increased interstitial prominence. This may represent pulmonary vascular congestion and/or viral pneumonia. Pleura: No effusion. No pneumothorax. Cardiomediastinal contours: Unremarkable Bones: Unremarkable IMPRESSION: Increased interstitial prominence. This may represent pulmonary vascular congestion and/or viral pneumonia. ATED BY: ERICKSON GERMAN MD DICTATED DATE/TIME: 05/02/25653 SIGNED BY: ERICKSON GERMAN MD SIGNED DATE/TIME: 05/02/25653 CC: Time of 1ST Reevaluation: 07:00 Reevaluation 1ST: Unchanged Patient Education/Counseling: Diagnosis, Treatment, Prognosis Family Education/Counseling: No Family Present SEPSIS Sepsis Screen Date sepsis recognized/suspect: May 02, 2025 Time Sepsis recognized/suspect: 0544 Recent Procedure: No On Antibiotic Therapy: No Respiratory Rate >20: No Heart Rate >90: No Temp<36 C (96.8 F) or >38.3 C: No SBP <90 or MAP <65 mmHG: No New Acute Mental Status Change: No Is the patient on CPAP, BIPAP,: No Physician Orders Chest Portable (05/02/25 06:25) Head Without Contrast (05/02/25 06:25) Troponin-I Hs (05/02/25 09:25) Electrocardigram (05/02/25 07:25) Electrocardigram (05/02/25 09:25) Vital Signs Date Time Temp Pulse Resp B/P (MAP) Pulse Ox O2 Delivery O2 Flow Rate FiO2 05/02/25 08:25 84 18 127/74 (91) 100 05/02/25 07:42 93 05/02/25 07:33 95 17 97 Room Air* 0 21 05/02/25 07:33 98.1 95 17 150/100 (117) 97 98.1 05/02/25 06:30 194/107 05/02/25 05:51 76 05/02/25 05:44 98.1 102 18 194/107 98 98.1 Laboratory Tests Test 05/02/25 06:45 White Blood Count 6.6 10^3/uL (4.4-10.8) Medications Medications Dose Ordered Sig/Tigre Route Start Time Stop Time Status Last Admin Dose Admin Acetaminophen 650 mg ONCE ONCE PO 05/02/25 06:30 05/02/25 06:36 DC 05/02/25 06:30 Hydralazine HCl 20 mg ONCE ONCE IV 05/02/25 06:30 05/02/25 06:36 DC 05/02/25 06:30 Departure 1 Departure Time of Disposition: 09:17 (Patient presented with hypertension and symptoms concerning for hypertensive emergency. Patient is receiving iv blood pressure medications requiring intensive monitoring. Data: 1. I ordered and reviewed the result of at least 3 labs including a CBC, BMP, and Urinalysis. 2. I independently interpreted the following tests: CT Brain: Which appears benign. EKG which is Normal Sinus RhythmRisk:This patient has a high risk of morbidity due to further diagnostic testing or treatment and may suffer from an acute cardiac disorder. Workup reveals hypertensive emergency and patient should be admitted for further workup. and possible expert consultation. ) Impression: Primary Impression: Hypertensive urgency Additional Impression: Migraine Qualified Codes: G43.109 - Migraine with aura, not intractable, without status migrainosus Disposition: ADMITTED INPATIENT Admit to: Tele Condition: Guarded Critical Care Note Critical Care Time?: Yes Critical care comment: Hypertensive urgency Authorized and Performed by: Luigi Barrera MD Total critical care time: Approximately 37 minutes Due to a high probability of clinically significant, life threatening deterioration, the patient required my highest level of preparedness to intervene emergently and I personally spent this critical care time directly and personally managing the patient. This critical care time included obtaining a history; examining the patient; pulse oximetry; ordering and review of studies; arranging urgent treatment with development of a management plan; evaluation of patient's response to treatment; frequent reassessment; and, discussions with other providers. This critical care time was performed to assess and manage the high probability of imminent, life-threatening deterioration that could result in multi-organ failure. It was exclusive of separately billable procedures and treating other patients and teaching time. Please see my other sections and the rest of the note for further information on patient assessment and treatment. Stability Stability form required: No Heart Score Heart Score: Heart Score Response (Comments) Value History N/A 0 EKG N/A 0 Age N/A 0 Risk Factors N/A 0 Troponin N/A 0 Total 0 I personally scribed for LUIGI BARRERA MD ([email or web address]) on 05/02/25 at 06:41. Electronically submitted by Jovita Vu ([email or web address]). I personally scribed for LUIGI BARRERA MD ([email or web address]) on 05/02/25 at 07:46. Electronically submitted by Jovita Vu ([email or web address]). LUIGI BARRERA MD May 02, 2025 06:41
--- NOTE | 2025-05-02 06:57 | DVH ---
CHEST RADIOGRAPH Indication: cp , sob Technique: Single frontal view of the chest was obtained COMPARISON: XY CHEST PORTABLE on DOS: 02/06/25, XY CHEST XRAY 1 VIEW on DOS: 01/15/25, XY CHEST PORTABLE on DOS: 12/21/24 FINDINGS: Lines and Tubes: None Lungs: Increased interstitial prominence. This may represent pulmonary vascular congestion and/or vir al pneumonia. Pleura: No effusion. No pneumothorax. Cardiomediastinal contours: Unremarkable Bones: Unremarkable IMPRESSION: Increased interstitial prominence. This may represent pulmonary vascular congestion and/or viral pneumonia.
--- NOTE | 2025-05-02 07:01 | DVH ---
EXAM: CT HEAD WITHOUT CONTRAST INDICATION: CP, sob TECHNIQUE: CT of the head without intravenous contrast. Coronal and sagittal reformatted images are s ubmitted. Radiation Dose : 1. Head: CT Dose: CTDI volume is 71.2 mGy. Dose-length product is 1401.6 mGy*cm The dose indicators for CT are the volume Computed Tomography (CT) Dose Index (CTDIvol) and the Dose Length Product (DLP), and are measured in units of mGy and mGy-cm, respectively. These indicators are not patient dose, but values generated from the CT scanner acquisition factors. The report includes radiation exposure data for exposures received during this examination. All CT scans at this medical facility are performed using dose modulation techniques as appropriate to a performed exam including the following: Automated exposure control was utilized; adjustment of the MA and/or KV according to patient size; and use of iterative reconstruction technique. COMPARISON: HEAD WITHOUT CONTRAST on DOS: 12/31/20 FINDINGS: There is no evidence of acute intracranial hemorrhage, extra-axial collection, mass effect, midline s hift, herniation or hydrocephalus. The ventricles, sulci and cisterns are age appropriate. The hernandez-white differentiation is intact. The visualized paranasal sinuses and mastoid air cells are clear. No depressed calvarial fracture. The surrounding soft tissues are unremarkable. IMPRESSION: 1. No acute intracranial abnormality.
[2025-05-02 07:05] LABS: Hematocrit 44.7 % (41.0-53.0); Hemoglobin 15.2 g/dL (13.5-17.5); Mean Corpuscular Hemoglobin 27.0 pg (28.0-32.0); Mean Corpuscular Volume 79.4 fL (80.0-100.0); Nucleated Red Blood Cells % 0.1 %
[2025-05-02 07:13] LABS: Anion Gap 8 (5-15); Carbon Dioxide 29 mmol/L (20-31); Chloride 104 mmol/L (98-107); Potassium 3.7 mmol/L (3.5-5.1); Sodium 141 mmol/L (136-145)
[2025-05-02 07:14] LABS: Calcium 9.2 mg/dL (8.7-10.4)
[2025-05-02 07:19] LABS: BUN/Creatinine Ratio 7.1 (10.0-20.0); Blood Urea Nitrogen 10 mg/dL (9-23); Glucose 85 mg/dL (74-106)
[2025-05-02 07:33] VITALS: PULSE 95; RESP 17; O2SAT 97
--- NOTE | 2025-05-02 07:43 | ECG ---
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
[2025-05-02 07:51] LABS: Urine Protein, UAD Negative (Negative)
--- NOTE | 2025-05-02 10:12 | ECG ---
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
[2025-05-02 10:30] VITALS: PULSE 87; RESP 13; O2SAT 100
[2025-05-02] MEDS ORDERED: NITROGLYCERIN 0.4 MG SL TAB SL PRN (10:30)
[2025-05-02] MEDS ORDERED: DOCUSATE SOD 100 MG CAP PO PRN (10:30)
[2025-05-02] MEDS: PANTOPRAZOLE 40 MG TAB PO SCH (10:30)
[2025-05-02] MEDS ORDERED: HYDROcodone-ACET 5/325MG TAB PO PRN (10:30)
[2025-05-02] MEDS: LISINOPRIL 20 MG TAB PO SCH (10:30)
[2025-05-02] MEDS ORDERED: ONDANSETRON HCL 4 MG/2 ML VIAL IV PRN (10:30)
[2025-05-02] MEDS ORDERED: MORPHINE SULFATE INJ 2 MG/ml SYRG IV PRN (10:30)
[2025-05-02] MEDS ORDERED: TEMAZEPAM 15 MG CAP PO PRN (10:30)
[2025-05-02] MEDS ORDERED: ACETAMINOPHEN 325 MG TAB PO PRN (10:30)
--- NOTE | 2025-05-02 14:53 | DVHPN2 ---
Progress Note - Dictate vital signs Vital Sign Date Time Temp Pulse Resp B/P (MAP) Pulse Ox O2 Delivery O2 Flow Rate FiO2 05/02/25 12:22 90 05/02/25 12:00 98.6 18 123/75 (91) 100 98.6 05/02/25 10:30 Room Air* 0 21 medications Current Medications Medications Dose Ordered Sig/Tigre Route Start Time Stop Time Status Last Admin Dose Admin Acetaminophen/ Hydrocodone Bitart 1 tab Q4HP PRN PO 05/02/25 10:30 Temazepam 15 mg QHSP PRN PO 05/02/25 10:30 Ondansetron HCl 4 mg Q4HP PRN IV 05/02/25 10:30 Docusate Sodium 100 mg BIDPRN PRN PO 05/02/25 10:30 Enoxaparin Sodium 40 mg DAILY SC 05/03/25 10:00 Acetaminophen 650 mg Q6HP PRN PO 05/02/25 10:30 Nitroglycerin 0.4 mg Q5MINP PRN SL 05/02/25 10:30 Morphine Sulfate 2 mg Q30M PRN IV 05/02/25 10:30 Lisinopril 40 mg DAILY PO 05/02/25 10:30 Pantoprazole Sodium 40 mg DAILY PO 05/02/25 10:30 05/02/25 10:30 40 MG laboratory and microbiology Laboratory Tests 05/02/25 06:45 Test 05/02/25 06:45 Range/Units Serum Glucose 85 74-106 mg/dL MIGUEL [employer] May 02, 2025 14:53
--- NOTE | 2025-05-02 17:13 | DVHINCON2 ---
Date of service: May 02, 2025 History of Present Illness HPI Patient is a 40-year-old gentleman who presented with headache and feeling uneasy. He mentions that last night he ate pork that he usually does not. This was followed with some headache and increased blood pressure. In the morning blood pressure was above 200 and he decided to come to emergency room. He called EMS. On arrival to Emergency room his blood pressure was 194/107. He is being treated for hypertensive emergency. Cardiology is involved for cardiac aspects of care. He denies any chest discomfort. He denies loss of consciousness. He is known to our practice from outside and before. Does have baseline history of hypertension and morbid obesity. Home Meds Active Scripts Ibuprofen Micronized (Ibuprofen) 600 Mg Tab, 1 TAB PO Q6HPRN PRN, #20 TAB As needed for pain Prov:MARYJANE KINNEY Q [employer] 07/03/23 Cephalexin Monohydrate (Cephalexin) 500 Mg Cap, 1 CAP PO QID for 5 Days, #20 CAP 0 Refills Prov:BALTAZAR MARINO 03/04/23 Past Medical History Others Past medical history includes morbid obesity, hypertension, hyperlipidemia, asthma, anxiety and panic attacks Patient Family History: Patient reports no known family medical history. Smoker: No Hx (Negative) Alocohol: None Drugs: None Lives with: With family Review of Systems Constitutional: No symptom reported Pulmonary/Respiratory: Dyspnea All Other Systems Fourteen point review of system was performed. Relevant findings as per above and as per HPI. Otherwise negative. H&P Exam Vital Signs Vital Signs Date Time Temp Pulse Resp B/P (MAP) Pulse Ox O2 Delivery O2 Flow Rate FiO2 05/02/25 12:22 90 05/02/25 12:00 98.6 18 123/75 (91) 100 98.6 05/02/25 10:30 Room Air* 0 21 General Appeara: Well developed Head Exam: Normal inspection Eye Exam: bilateral eye PERRL Mouth: Normal Inspection Pulmonary/Respiratory: Lungs clear Cardiovascular/Chest: Normal inspection, Regular rate Peripheral Pulses: 2+ carotid (R), 2+ carotid (L), 2+ femoral (R), 2+ femoral (L) Abdominal Exam: Normal bowel sounds, Soft Neuro/Mental St: Alert, Oriented Appearance: Appropriate appearance Eye contact/ Speech: Cooperative Labs/Xrays Labs Test 05/02/25 09:42 05/02/25 07:30 05/02/25 06:45 Range/Units Troponin I High Sensitivity 7 </=54 ng/L Urine Color Colorless Yellow Urine Clarity Clear Clear Urine pH 6.0 5.0-9.0 Urine Specific [place] 1.009 1.001-1.035 Urine Protein Negative Negative Urine Ketones Negative Negative Urine Blood Negative Negative /uL Urine Nitrite Negative Negative Urine Bilirubin Negative Negative Urine Urobilinogen Normal Negative mg/dL Urine Leukocyte Esterase Negative Negative /uL Urine RBC <1 0 - 3 /hpf Urine Microscopic WBC < 1 0-3 /HPF Urine Squamous Epithelial Cells None seen <5 /hpf Urine Bacteria None seen None Seen /hpf Urine Glucose Normal Normal mg/dL White Blood Count 6.6 4.4-10.8 10^3/uL Red Blood Count 5.63 4.5-5.90 10^6/uL Hemoglobin 15.2 13.5-17.5 g/dL Hematocrit 44.7 41.0-53.0 % Mean Corpuscular Volume 79.4 L 80.0-100.0 fL Mean Corpuscular Hemoglobin 27.0 L 28.0-32.0 pg Mean Corpuscular Hemoglobin Concent 34.1 32.0-36.0 g/dL Red Cell Distribution Width 14.7 H 11.8-14.3 % Platelet Count 258 140-450 10^3/uL Mean Platelet Volume 8.1 6.9-10.8 fL Neutrophils (%) (Auto) 61.5 37.0-80.0 % Lymphocytes (%) (Auto) 25.5 10.0-50.0 % Monocytes (%) (Auto) 8.7 0.0-12.0 % Eosinophils (%) (Auto) 3.8 0.0-7.0 % Basophils (%) (Auto) 0.5 0.0-2.0 % Neutrophils # (Auto) 4.0 1.6-8.6 10 ^3/uL Lymphocytes # (Auto) 1.7 0.4-5.4 10 ^3/uL Monocytes # (Auto) 0.6 0-1.3 10 ^3/uL Eosinophils # (Auto) 0.3 0-0.8 10 ^3/uL Basophils # (Auto) 0 0-0.2 10 ^3/uL Nucleated Red Blood Cells 0.1 % Sodium Level 141 136-145 mmol/L Potassium Level 3.7 3.5-5.1 mmol/L Chloride Level 104 98-107 mmol/L Carbon Dioxide Level 29 20-31 mmol/L Anion Gap 8 5-15 Blood Urea Nitrogen 10 9-23 mg/dL Creatinine 1.40 H 0.700-1.30 mg/dL Glomerular Filtration Rate Calc 66 >90 mL/min BUN/Creatinine Ratio 7.1 L 10.0-20.0 Serum Glucose 85 74-106 mg/dL Calcium Level 9.2 8.7-10.4 mg/dL Assessment/Plan Plan Patient is a 40-year-old gentleman who presented with headache and feeling uneasy. He mentions that last night he ate pork that he usually does not. This was followed with some headache and increased blood pressure. In the morning blood pressure was above 200 and he decided to come to emergency room. He called EMS. On arrival to Emergency room his blood pressure was 194/107. He is being treated for hypertensive emergency. Cardiology is involved for cardiac aspects of care. He denies any chest discomfort. He denies loss of consciousness. He is known to our practice from outside and before. Does have baseline history of hypertension and morbid obesity. Morbidly obese. No JVD. Not in acute distress. No goiter. Mucosa is pink and wet. No carotid bruit. Not using accessory muscles of breathing. Lungs are clear to auscultation. Cardiac: Regular, no thrill/gallop. Abdomen is soft and obese. Bowel sound is positive. There is no gross mass/hepatomegaly. There is no peripheral edema. Dorsalis pedis is 2+ bilateral. There is no gross lateralized neurologic deficit. Past medical history includes morbid obesity, hypertension, hyperlipidemia, asthma, anxiety and panic attacks. Echocardiogram of January 16, 2025 revealed ejection fraction of 65% with normal atria. Echocardiogram of February 27, 2025 (performed in the office) revealed normal left ventricular thickness, ejection fraction of 65-70%, normal diastolic, no wall motion abnormality, trace MR/TR and right ventricular systolic pressure of less than 35 mm Hg Creatinine: 1.40 Troponin (high sensitive): 7-8-7 Chest x-ray revealed: IMPRESSION: Increased interstitial prominence. This may represent pulmonary vascular congestion and/or viral pneumonia. CT of the head revealed: IMPRESSION: 1. No acute intracranial abnormality. EKG revealed sinus rhythm with no specific ST-T changes Patient is a 40-year-old gentleman who presented with headache and hypertension. Presentation is in favor of hypertensive emergency. Has not been compliant to diet. Hypertensive emergency Morbidly obese Hypertension Hyperlipidemia Anxiety disorder Cardiac suggestion for management: Managed on telemetry Follow-up electrolytes and kidney function tests and correct abnormalities Control blood pressure Consider urine drug screen No ischemic workup indicated at this point Further evaluation and management depends on the above and clinical course Thank you for consultation A total of 75 minutes was spent reviewing the patient record, examining the patient, making a diagnostic and therapeutic plan, discussing this plan with medical personnel, following up on diagnostic studies and following the patient for clinical stability excluding any and all procedures. At least 50% of this time was spent in direct, [id number] contact. Thank you for allowing me to participate in this patient's care. Further recommendations will depend on patient's clinical course. Please do not hesitate to contact me if you have any questions or concerns. This medical document was created using electronic medical record system with [employer] computerized dictation system. Although this document has been carefully reviewed, there may still be some phonetic and typographical errors. These areas are purely typographical due to the imperfection of the software programs, and do not reflect any compromise in the patient's medical care. Plan discussed with: Patient, Other (nurse) VIRAL NAYAK MD May 02, 2025 17:13
[2025-05-02 17:36] VITALS: RESP 17
[2025-05-02] MEDS ORDERED: MAGN400C3 PO (17:42)
[2025-05-02] MEDS ORDERED: LISI20TA56 PO (17:42)
[2025-05-02] MEDS ORDERED: HYDR12.59 PO (17:42)
[2025-05-02] MEDS ORDERED: ATOR40TA52 PO (17:42)
[2025-05-02] MEDS ORDERED: PANT40T PO (17:42)
[2025-05-02 20:00] VITALS: PULSE 87; PULSE 91; RESP 16; O2SAT 100
--- NOTE | 2025-05-02 20:07 | DVHHP2 ---
Admitting Diagnosis: hypertension History of Present Illness 40 year old male with PMHx anxiety, asthma, HLD, HTN presents to the ED with a chief complaint of hypertension onset last night. Patient states he had pork for dinner, began experiencing headache around 20:00, went to sleep. He woke up around 04:00, took HTN medication, checked BP, was 182/120, went back to sleep. Patient began experiencing chest tightness with shortness of breath, called 911. Upon EMS arrival, BP was 194/107. Upon ED arrival, shortness of breath and chest tightness has resolved. Denies fever, chills, nausea, vomiting, diarrhea, cough, congestion, sore throat, dysuria, hematuria, hematemesis. No other symptoms or modifying factors present at this time. While in the emergency department the patient was evaluated by the provider, As per provider: Labs, vital signs, and imagining monitored. Patient will be admitted for further evaluation and treatment. I discussed admission with the patient/family and is in agreement to treatment plan Patient Family History: Patient reports no known family medical history. Allergies: Coded Allergies: NO KNOWN ALLERGIES (Unverified , 11/12/20) Home Meds Reported Medications Atorvastatin Calcium (ATORVASTATIN CALCIUM) 40 Mg Tab, 1 TAB PO DAILY, #30 TAB 5 Refills 05/02/25 Pantoprazole Sodium Sesquihydr (Pantoprazole Sodium) 40 Mg Tab, 40 MG PO, TAB 05/02/25 Lisinopril (Lisinopril) 20 Mg Tab, 1 TAB PO DAILY, #30 TAB 5 Refills 05/02/25 Magnesium Oxide (Mg Supplement (MAGNESIUM) 400 Mg Cap, 400 MG PO, CAP 05/02/25 Hydrochlorothiazide (Hydrochlorothiazide) 12.5 Mg Cap, 12.5 MG PO DAILY for 30 Days, MG 05/02/25 Current Medications Current Medications Medications (Trade) Dose Ordered Sig/Tigre Route PRN Reason Start Time Stop Time Status Last Admin Acetaminophen/ Hydrocodone Bitart ([place] 5/325MG Tab) 1 tab Q4HP PRN PO MODERATE PAIN (4-6 PAIN SCALE) 05/02/25 10:30 Temazepam (Restoril) 15 mg QHSP PRN PO FOR INSOMNIA 05/02/25 10:30 Ondansetron HCl (Zofran) 4 mg Q4HP PRN IV NAUSEA / VOMITING 05/02/25 10:30 Docusate Sodium (Colace Capsule) 100 mg BIDPRN PRN PO FOR CONSTIPATION 05/02/25 10:30 Enoxaparin Sodium (Lovenox) 40 mg DAILY SC 05/03/25 10:00 Acetaminophen (Tylenol Tablet) 650 mg Q6HP PRN PO PAIN SCALE 1-3 OR TEMP>100.4 05/02/25 10:30 Nitroglycerin (Ntrostat Sublingual) 0.4 mg Q5MINP PRN SL FOR CHEST PAIN 05/02/25 10:30 Morphine Sulfate 2 mg Q30M PRN IV FOR CHEST PAIN 05/02/25 10:30 Lisinopril (Zestril Tablet) 40 mg DAILY PO 05/02/25 10:30 Pantoprazole Sodium (Protonix Tablet) 40 mg DAILY PO 05/02/25 10:30 05/02/25 10:30 Review of Systems Constitutional: denies chills, denies fever, denies malaise Eyes: denies eye pain, denies vision change ENT: denies ear pain, denies headache, denies nasal congestion, denies painful swallowing, denies voice change Cardiovascular: denies chest pain, denies edema, denies orthopnea, denies palpitations, denies paroxysmal nocturnal dyspnea Respiratory: denies cough, denies shortness of breath Gastrointestinal: denies constipation, denies diarrhea, denies nausea, denies vomiting Genitourinary: denies dysuria, denies frequent urination, denies urethral discharge Musculoskeletal: denies back pain, denies joint pain, denies muscle pain Skin: denies bruising, denies itching, denies rash Neurological: denies focal weakness, denies headache, denies sensory changes Psychiatric: denies anxiety, denies depression Endocrine: denies polydipsia, denies polyuria Hematologic/Lymphatic: denies easy bleeding, denies easy bruising, denies enlarged lymph nodes Allergic/Immunologic: denies allergy, denies hives Vital Signs Vital Signs Date Time Temp Pulse Resp B/P (MAP) Pulse Ox O2 Delivery O2 Flow Rate FiO2 05/02/25 17:36 17 Room Air* 0 21 05/02/25 12:22 90 05/02/25 12:00 98.6 123/75 (91) 100 98.6 Physical Exam General Appearance: alert, no distress HEENT: EOMI, PERRLA, normal external inspect of ears, no icterus, no nasal drainage Neck: no carotid bruit, no jugular venous distention (JVD), no lymphadenopathy Chest: normal thorax Respiratory: clear to auscultation, normal air movement Cardiovascular: regular rate and rhythm, no diastolic murmur, no jugular venous distention (JVD), no rub, no systolic murmur Abdominal: soft, no hepatomegaly, no mass, no splenomegaly, no tenderness Genitourinary: grossly normal external Musculoskeletal: no joint tenderness, no swelling Extremities: normal pulses, no calf tenderness, no clubbing, no cyanosis, no edema Skin: no bruising, no jaundice, no rash Neurological: alert, No focal deficit SEPSIS Sepsis Screen Date sepsis recognized/suspect: May 02, 2025 Time Sepsis recognized/suspect: 1030 Recent Procedure: No On Antibiotic Therapy: No Respiratory Rate >20: No Heart Rate >90: No Temp<36 C (96.8 F) or >38.3 C: No SBP <90 or MAP <65 mmHG: No New Acute Mental Status Change: No Is the patient on CPAP, BIPAP,: No Physician Orders Chest Portable (05/02/25 06:25) Head Without Contrast (05/02/25 06:25) Electrocardigram (05/02/25 09:25) Admit (05/02/25 10:25) Code Status (05/02/25 10:25) 2 Gm Sodium Diet (05/02/25 Lunch) Hydrocodone-Acet 5/325mg Tab ([place] 5/32 (05/02/25 10:30) Temazepam (Restoril) (05/02/25 10:30) Ondansetron Hcl (Zofran) (05/02/25 10:30) Docusate Sodium Capsule (Colace Capsule) (05/02/25 10:30) Enoxaparin Sodium (Lovenox) (05/03/25 10:00) Condition: Fair (05/02/25 10:25) Acetaminophen Tablet (Tylenol Tablet) (05/02/25 10:30) *Consult Dr. Keyshawn Larry (05/02/25 10:25) Nitroglycerin Sublingual (Ntrostat Subli (05/02/25 10:30) Morphine Sulfate Injection (05/02/25 10:30) Stat Ekg For Chest Pain (05/02/25 10:25) Notify Md Of Changes From Base (05/02/25 10:25) Quality Assurance Monitor For 24 Hours (05/02/25 10:25) Emergency Dysrhythmia Protocol (05/02/25 10:25) Rhythm Strips Once Every Shift (05/02/25 10:25) Oxygen By Nasal Cannula (05/02/25 10:25) Lisinopril Tablet (Zestril Tablet) (05/02/25 10:30) Pantoprazole Tablet (Protonix Tablet) (05/02/25 10:30) Vital Signs Date Time Temp Pulse Resp B/P (MAP) Pulse Ox O2 Delivery O2 Flow Rate FiO2 05/02/25 17:36 17 Room Air* 0 21 05/02/25 12:22 90 05/02/25 12:00 98.6 90 18 123/75 (91) 100 98.6 05/02/25 10:30 87 13 100 Room Air* 0 21 05/02/25 10:30 98.6 87 13 130/89 (103) 100 98.6 05/02/25 10:30 130/89 05/02/25 10:10 87 05/02/25 08:25 84 18 127/74 (91) 100 05/02/25 07:42 93 05/02/25 07:33 95 17 97 Room Air* 0 21 05/02/25 07:33 98.1 95 17 150/100 (117) 97 98.1 05/02/25 06:30 194/107 05/02/25 05:51 76 05/02/25 05:44 98.1 102 18 194/107 98 98.1 Laboratory Tests Test 05/02/25 06:45 White Blood Count 6.6 10^3/uL (4.4-10.8) Medications Medications Dose Ordered Sig/Tigre Route Start Time Stop Time Status Last Admin Dose Admin Pantoprazole Sodium 40 mg DAILY PO 05/02/25 10:30 05/02/25 10:30 Results Labs Test 05/02/25 09:42 05/02/25 07:30 05/02/25 06:45 Range/Units Troponin I High Sensitivity 7 </=54 ng/L Urine Color Colorless Yellow Urine Clarity Clear Clear Urine pH 6.0 5.0-9.0 Urine Specific [place] 1.009 1.001-1.035 Urine Protein Negative Negative Urine Ketones Negative Negative Urine Blood Negative Negative /uL Urine Nitrite Negative Negative Urine Bilirubin Negative Negative Urine Urobilinogen Normal Negative mg/dL Urine Leukocyte Esterase Negative Negative /uL Urine RBC <1 0 - 3 /hpf Urine Microscopic WBC < 1 0-3 /HPF Urine Squamous Epithelial Cells None seen <5 /hpf Urine Bacteria None seen None Seen /hpf Urine Glucose Normal Normal mg/dL White Blood Count 6.6 4.4-10.8 10^3/uL Red Blood Count 5.63 4.5-5.90 10^6/uL Hemoglobin 15.2 13.5-17.5 g/dL Hematocrit 44.7 41.0-53.0 % Mean Corpuscular Volume 79.4 L 80.0-100.0 fL Mean Corpuscular Hemoglobin 27.0 L 28.0-32.0 pg Mean Corpuscular Hemoglobin Concent 34.1 32.0-36.0 g/dL Red Cell Distribution Width 14.7 H 11.8-14.3 % Platelet Count 258 140-450 10^3/uL Mean Platelet Volume 8.1 6.9-10.8 fL Neutrophils (%) (Auto) 61.5 37.0-80.0 % Lymphocytes (%) (Auto) 25.5 10.0-50.0 % Monocytes (%) (Auto) 8.7 0.0-12.0 % Eosinophils (%) (Auto) 3.8 0.0-7.0 % Basophils (%) (Auto) 0.5 0.0-2.0 % Neutrophils # (Auto) 4.0 1.6-8.6 10 ^3/uL Lymphocytes # (Auto) 1.7 0.4-5.4 10 ^3/uL Monocytes # (Auto) 0.6 0-1.3 10 ^3/uL Eosinophils # (Auto) 0.3 0-0.8 10 ^3/uL Basophils # (Auto) 0 0-0.2 10 ^3/uL Nucleated Red Blood Cells 0.1 % Sodium Level 141 136-145 mmol/L Potassium Level 3.7 3.5-5.1 mmol/L Chloride Level 104 98-107 mmol/L Carbon Dioxide Level 29 20-31 mmol/L Anion Gap 8 5-15 Blood Urea Nitrogen 10 9-23 mg/dL Creatinine 1.40 H 0.700-1.30 mg/dL Glomerular Filtration Rate Calc 66 >90 mL/min BUN/Creatinine Ratio 7.1 L 10.0-20.0 Serum Glucose 85 74-106 mg/dL Calcium Level 9.2 8.7-10.4 mg/dL Plan 1. Hypertensive urgency Monitor, antihypertensive, cardiology consult, echocardiogram, DVT prophylaxis, PPI 2. Morbid obesity Monitor 3. Headache Monitor, antihypertensive Plan discussed with: Patient, Other MIGUEL GALAN NP May 02, 2025 20:07
[2025-05-02 21:00] VITALS: BP 124/86; PULSE 91; RESP 18; TEMP 98.4; O2SAT 100
[2025-05-03 05:00] VITALS: BP 126/88; PULSE 71; RESP 18; TEMP 98.4; O2SAT 100
--- NOTE | 2025-05-03 07:26 | DVHPN2 ---
Progress Note - Dictate Date Seen: May 03, 2025 Medical Necessity Reason Pt with a Central, PICC or Fol: No vital signs Vital Sign Date Time Temp Pulse Resp B/P (MAP) Pulse Ox O2 Delivery O2 Flow Rate FiO2 05/03/25 05:00 98.4 71 18 126/88 (101) 100 98.4 05/02/25 20:00 Room Air* 0 21 Total Intake and Output 05/02/25 05/02/25 05/03/25 15:00 23:00 07:00 Intake Total 400 ml Balance 400 ml medications Current Medications Medications Dose Ordered Sig/Tigre Route Start Time Stop Time Status Last Admin Dose Admin Acetaminophen/ Hydrocodone Bitart 1 tab Q4HP PRN PO 05/02/25 10:30 Temazepam 15 mg QHSP PRN PO 05/02/25 10:30 Ondansetron HCl 4 mg Q4HP PRN IV 05/02/25 10:30 Docusate Sodium 100 mg BIDPRN PRN PO 05/02/25 10:30 Enoxaparin Sodium 40 mg DAILY SC 05/03/25 10:00 Acetaminophen 650 mg Q6HP PRN PO 05/02/25 10:30 Nitroglycerin 0.4 mg Q5MINP PRN SL 05/02/25 10:30 Morphine Sulfate 2 mg Q30M PRN IV 05/02/25 10:30 Lisinopril 40 mg DAILY PO 05/02/25 10:30 Pantoprazole Sodium 40 mg DAILY PO 05/02/25 10:30 05/02/25 10:30 40 MG laboratory and microbiology Laboratory Tests 05/02/25 06:45 Test 05/02/25 06:45 Range/Units Serum Glucose 85 74-106 mg/dL Assessment/Plan Patient is a 40-year-old gentleman who presented with headache and feeling uneasy. He mentions that last night he ate pork that he usually does not. This was followed with some headache and increased blood pressure. In the morning blood pressure was above 200 and he decided to come to emergency room. He called EMS. On arrival to Emergency room his blood pressure was 194/107. He is being treated for hypertensive emergency. Cardiology is involved for cardiac aspects of care. He denies any chest discomfort. He denies loss of consciousness. He is known to our practice from outside and before. Does have baseline history of hypertension and morbid obesity. Morbidly obese. No JVD. Not in acute distress. No goiter. Mucosa is pink and wet. No carotid bruit. Not using accessory muscles of breathing. Lungs are clear to auscultation. Cardiac: Regular, no thrill/gallop. Abdomen is soft and obese. Bowel sound is positive. There is no gross mass/hepatomegaly. There is no peripheral edema. Dorsalis pedis is 2+ bilateral. There is no gross lateralized neurologic deficit. Past medical history includes morbid obesity, hypertension, hyperlipidemia, asthma, anxiety and panic attacks. Echocardiogram of January 16, 2025 revealed ejection fraction of 65% with normal atria. Echocardiogram of February 27, 2025 (performed in the office) revealed normal left ventricular thickness, ejection fraction of 65-70%, normal diastolic, no wall motion abnormality, trace MR/TR and right ventricular systolic pressure of less than 35 mm Hg Creatinine: 1.40 Troponin (high sensitive): 7 - 8 - 7 Chest x-ray revealed: IMPRESSION: Increased interstitial prominence. This may represent pulmonary vascular congestion and/or viral pneumonia. CT of the head revealed: IMPRESSION: 1. No acute intracranial abnormality. EKG revealed sinus rhythm with no specific ST-T changes Patient is a 40-year-old gentleman who presented with headache and hypertension. Presentation is in favor of hypertensive emergency. Has not been compliant to diet. Hypertensive emergency Morbidly obese Hypertension Hyperlipidemia Anxiety disorder Cardiac suggestion for management: Managed on telemetry Follow-up electrolytes and kidney function tests and correct abnormalities Control blood pressure You may consider urine drug screen No ischemic workup indicated at this point Further evaluation and management depends on the above and clinical course Cardiac sow, can be followed as outpatient A total of 75 minutes was spent reviewing the patient record, examining the patient, making a diagnostic and therapeutic plan, discussing this plan with medical personnel, following up on diagnostic studies and following the patient for clinical stability excluding any and all procedures. At least 50% of this time was spent in direct, [id number] contact. Thank you for allowing me to participate in this patient's care. Further recommendations will depend on patient's clinical course. Please do not hesitate to contact me if you have any questions or concerns. This medical document was created using electronic medical record system with [employer] dictation system. Although this document has been carefully reviewed, there may still be some phonetic and typographical errors. These areas are purely typographical due to the imperfection of the software programs, and do not reflect any compromise in the patient's medical care. Plan discussed with: Patient, Other (nurse) VIRAL NAYAK MD May 03, 2025 07:26
[2025-05-03 07:55] VITALS: PULSE 60; RESP 16; O2SAT 92
[2025-05-03 08:28] VITALS: PULSE 71
[2025-05-03] MEDS: ENOXAPARIN SOD 40 MG/0.4 ML SYRINGE SC SCH (09:23)
[2025-05-03 09:26] VITALS: BP 129/84; PULSE 78; RESP 19; TEMP 97.3; O2SAT 98
[2025-05-03 12:46] VITALS: BP 145/93; PULSE 83; RESP 18; TEMP 97.5; O2SAT 99
[2025-05-03] MEDS ORDERED: LOSA-534 PO (16:34)
--- NOTE | 2025-05-03 16:35 | DVHDS2 ---
Discharge Summary Date of Admission May 02, 2025 at 10:25 Date of Discharge: May 03, 2025 Labs/Diagnostic Data: Laboratory Results Test 05/02/25 09:42 05/02/25 07:30 05/02/25 06:45 Troponin I High Sensitivity 7 ng/L (</=54) Urine Color Colorless (Yellow) Urine Clarity Clear (Clear) Urine pH 6.0 (5.0-9.0) Urine Specific [place] 1.009 (1.001-1.035) Urine Protein Negative (Negative) Urine Ketones Negative (Negative) Urine Blood Negative /uL (Negative) Urine Nitrite Negative (Negative) Urine Bilirubin Negative (Negative) Urine Urobilinogen Normal mg/dL (Negative) Urine Leukocyte Esterase Negative /uL (Negative) Urine RBC <1 /hpf (0 - 3) Urine Microscopic WBC < 1 /HPF (0-3) Urine Squamous Epithelial Cells None seen /hpf (<5) Urine Bacteria None seen /hpf (None Seen) Urine Glucose Normal mg/dL (Normal) White Blood Count 6.6 10^3/uL (4.4-10.8) Red Blood Count 5.63 10^6/uL (4.5-5.90) Hemoglobin 15.2 g/dL (13.5-17.5) Hematocrit 44.7 % (41.0-53.0) Mean Corpuscular Volume 79.4 fL (80.0-100.0) Mean Corpuscular Hemoglobin 27.0 pg (28.0-32.0) Mean Corpuscular Hemoglobin Concent 34.1 g/dL (32.0-36.0) Red Cell Distribution Width 14.7 % (11.8-14.3) Platelet Count 258 10^3/uL (140-450) Mean Platelet Volume 8.1 fL (6.9-10.8) Neutrophils (%) (Auto) 61.5 % (37.0-80.0) Lymphocytes (%) (Auto) 25.5 % (10.0-50.0) Monocytes (%) (Auto) 8.7 % (0.0-12.0) Eosinophils (%) (Auto) 3.8 % (0.0-7.0) Basophils (%) (Auto) 0.5 % (0.0-2.0) Neutrophils # (Auto) 4.0 10 ^3/uL (1.6-8.6) Lymphocytes # (Auto) 1.7 10 ^3/uL (0.4-5.4) Monocytes # (Auto) 0.6 10 ^3/uL (0-1.3) Eosinophils # (Auto) 0.3 10 ^3/uL (0-0.8) Basophils # (Auto) 0 10 ^3/uL (0-0.2) Nucleated Red Blood Cells 0.1 % Sodium Level 141 mmol/L (136-145) Potassium Level 3.7 mmol/L (3.5-5.1) Chloride Level 104 mmol/L (98-107) Carbon Dioxide Level 29 mmol/L (20-31) Anion Gap 8 (5-15) Blood Urea Nitrogen 10 mg/dL (9-23) Creatinine 1.40 mg/dL (0.700-1.30) Glomerular Filtration Rate Calc 66 mL/min (>90) BUN/Creatinine Ratio 7.1 (10.0-20.0) Serum Glucose 85 mg/dL (74-106) Calcium Level 9.2 mg/dL (8.7-10.4) Other Laboratory Tests 05/02/25 06:45 Brief Hx & Hospital Course: 40 year old male with PMHx anxiety, asthma, HLD, HTN presents to the ED with a chief complaint of hypertension onset last night. Patient states he had pork for dinner, began experiencing headache around 20:00, went to sleep. He woke up around 04:00, took HTN medication, checked BP, was 182/120, went back to sleep. Patient began experiencing chest tightness with shortness of breath, called 911. Upon EMS arrival, BP was 194/107. Upon ED arrival, shortness of breath and chest tightness has resolved. Denies fever, chills, nausea, vomiting, diarrhea, cough, congestion, sore throat, dysuria, hematuria, hematemesis. No other symptoms or modifying factors present at this time. Patient was admitted on May 02, 2025, for uncontrolled hypertension with hypertensive crisis causing a headache. Patient is morbidly obese and has a history of hypertension in the past. He reportedly has been refusing lisinopril because he states it does not work. I discussed the care plan with him, and he is willing to take losartan. He states he takes a low-dose HCTZ at home prescribed by his primary physician. Blood pressure was 197/107 on admission in the emergency room. He is willing to take his blood pressure twice a day and has a blood pressure cuff at home. I instructed him that we sent losartan 50 mg PO twice daily. Patient states he is willing to take losartan 50 mg daily. I stated that was okay as long as he trended his blood pressure and, if his blood pressure was high in the evening, he would need to take his second dose of losartan. 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 The patient received proper medical treatment and medications. Vital signs, Imaging and Laboratory Work was monitored daily. All consults recommendations were followed as provided. There were no complaints or new complaints upon discharge, all questions and concerns were answered. Patient was advised to return to the ER or call 911 if any headaches, dizziness, shortness of breath, chest pain, bleeding, fevers, or worsening of medical condition. Patient/Family was counseled about treatment plan, medications, possible side effects, patient verbalized understanding. All questions were answered to the best of my ability. The patient symptoms improved and they are okay to be DC. Condition at Discharge: Stable Final Diagnosis/Problems List Hypertensive urgency Headache related to uncontrolled blood pressure Morbid obesity Discharge Disposition: Home Discharge Instruct/Medications Diet: Cardiac 2g Na,low cholest Activity: No Restrictions, As Tolerated Follow Up/Referral: pcp 1 week Scheduled Atorvastatin Calcium (Atorvastatin Calcium), 1 TAB PO DAILY, (Reported) Hydrochlorothiazide (Hydrochlorothiazide), 12.5 MG PO DAILY, (Reported) Lisinopril (Lisinopril), 1 TAB PO DAILY, (Reported) Losartan Potassium (Losartan Potassium), 1 TAB PO BID Miscellaneous Medications Magnesium Oxide (Mg Supplement (Magnesium), 400 MG PO, (Reported) Pantoprazole Sodium Sesquihydr (Pantoprazole Sodium), 40 MG PO, (Reported) Discharge Statement: "Patient was advised to return to the ER or call 911 if any headaches, dizziness, shortness of breath, chest pain, abdominal pain, bleeding, fevers, or worsening of medical condition. Patient was counseled about treatment plan, medications, possible side effects, patientverbalized understanding. All questions were answered to the best of my ability. This discharge took greater then 30 minutes in planning, reviewing documentation, counseling the patient, and discussing with other team members." ASSESSMENT ASSESSMENT Assessment Hypertensive urgency Headache related to uncontrolled blood pressure MIGUEL GALAN NP May 03, 2025 16:35
[2025-05-03 18:37] VITALS: BP 129/84; TEMP 36.4
== END 2025-05-03 19:06 | disposition home or self-care (01) | DRG 199 ==
LOC: ER 05:44 → EDBD 05:44 → OVERFLOW 10:25 → TELE-CENTR 17:32
PROVIDERS: ADMIT Nurse Practitioner; ATTEND Nurse Practitioner
DX: I16.0 Hypertensive urgency (principal); E66.01 Morbid (severe) obesity due to excess calories; E78.5 Hyperlipidemia, unspecified; F41.9 Anxiety disorder, unspecified; J45.909 Unspecified asthma, uncomplicated; I10 Essential (primary) hypertension; G43.909 Migraine, unspecified, not intractable, without status migrainosus; Z68.42 Body mass index [BMI] 45.0-49.9, adult; Z87.891 Personal history of nicotine dependence; Z91.199 Patient's noncompliance with other medical treatment and regimen due to unspecified reason; Z79.899 Other long term (current) drug therapy
CPT/HCPCS: 36415; 70450; 71045; 80048; 81001; 84484; 85025; 93005; 93306; 96374; 99291; G0378